=== PATIENT | female | born 1945 ===

== ENCOUNTER 2021-04-06 18:04 | Emergency (ER) | payer MEDICARE, MEDICAID, SELFPAY ==
--- NOTE | ~2021-04-06 | XR_ITS ---
EXAMINATION: XR RIBS, LEFT CLINICAL INFORMATION: Fall. COMPARISON: Most recent chest radiograph dated 10/14/2012. TECHNIQUE: PA view of the chest as well as 3 views of the left ribs. FINDINGS: Lungs are clear. No consolidation, pneumothorax, or pleural effusion. The cardiomediastinal silhouette and pulmonary vasculature are normal. Mildly displaced fractures through the posterolateral aspect of the left 5th, 6th, and 7th ribs. No lytic or blastic osseous lesion. No abnormal soft tissue calcification. XR/XR ribs LT min 3V w CXR1V IMPRESSION: Mildly displaced posterolateral left 5th, 6th, and 7th rib fractures.
[2021-04-06 18:13] VITALS: BP 147/70; BP 180/120; PULSE 80; PULSE 87; RESP 18; TEMP 36.9; O2SAT 96; O2SAT 97; BMI 28.8
--- NOTE | 2021-04-06 18:18 | ED.FALL ---
HPI - Fall General Chief Complaint: Fall Stated Complaint: fall down stairs Time Seen by Provider: 04/06/21 18:18 Source: patient and family Mode of arrival: EMS Limitations: no limitations History of Present Illness HPI Narrative: Patient apparently lost balance had a mechanical fall just prior to arrival while coming downstairs on cement steps fell about 5 steps hit her right side of the head to the wall and hit her left ribs to the ground, was dazed and slightly confused after the injury not on any blood thinner no shortness of breath Related Data Home Medications Medication Instructions Recorded Confirmed amitriptyline 10 mg tablet mg PO 12/13/20 12/13/20 ibuprofen 400 mg tablet mg PO 12/13/20 12/13/20 meclizine 25 mg tablet mg PO 12/13/20 12/13/20 propranolol 60 mg tablet mg PO 12/13/20 12/13/20 sumatriptan succinate 100 mg tablet mg PO 12/13/20 12/13/20 zolpidem 5 mg tablet mg PO 12/13/20 12/13/20 Previous Rx's Medication Instructions Recorded cyclobenzaprine 5 mg tablet 5 mg PO TID PRN #14 tab 04/06/21 tramadol 50 mg tablet 50 mg PO Q6H PRN #20 tab 04/06/21 Allergies Allergy/AdvReac Type Severity Reaction Status Date / Time influenza virus vaccine, Allergy Unknown UNKNOWN Verified 12/13/20 12:29 specific [FLU VACCINE] naproxen [From ANAPROX] Allergy Unknown STOMACH Verified 12/13/20 12:29 UPSET Anaprox Allergy Unknown upset Uncoded 12/13/20 12:29 stomach Review of Systems Review of Systems: Yes all other systems are reviewed and are negative PMF Past Medical History Medical History Post-menopausal Screening for breast cancer Screening for diabetes mellitus Screening for hyperlipidemia Surgical History History of delivery History of colonoscopy Family History Family History Mother No problems noted. Father No problems noted. Social History Social History Housing: House Alcohol intake: never Patient Tobacco Use Status: Former Tobacco user Quit Date: 1997 Advance Directives: No Advance Directives Information Provided: No service: No Current occupational status: disabled Physical Exam Vital Signs: Vital Signs: Last Vital Signs Temp 98.4 F 04/06/21 18:13 Pulse 87 04/06/21 18:13 Resp 18 04/06/21 18:13 BP 147/70 H 04/06/21 18:13 Pulse Ox 97 04/06/21 18:13 Body Mass Index 28.8 Appearance: Alert. Oriented X3. No acute distress. Eyes: PERRLA, HEENT: Pharynx normal. Oral Mucosa moist, atraumatic normocephalic Neck: Normal inspection. Neck supple no midline tenderness CVS: Normal heart rate and rhythm. Pulses normal. Respiratory: No respiratory distress. Equal air entry bilateral, no wheezing/rales/rhonchi tenderness left 6- 7 ribs in mid axillary area no crepitation no bruising Abdomen: Soft and nontender. Bowel sounds are present, no mass palpable, no CVA tenderness Skin: Skin warm and dry. Normal skin color. Normal skin turgor. Extremities: No lower extremity edema. No calf tenderness pelvis stable hips good range of movement nontender Neuro: Oriented X 3. No motor deficit. Procedures FAST Exam FAST Exam 1: Fluid in Morison's pouch: No Fluid in Splenorenal Junction: No Fluid around bladder, Transverse view: No Fluid around bladder, Sagittal view: No Fluid in Pericardial Sac: No Gross Wall Motion Abnormality: No Study normal for this patient: Yes Images saved for further review: No MDM - Fall MDM Narrative Medical decision making narrative: Patient with mild displaced posterolateral left 5 6 7th rib fracture without any lung contusion not on any blood thinner we will discharge patient home on pain medication Imaging Data Chest x-ray: Attestation: I personally reviewed and interpreted this imaging study as follows: Radiologist's impression: XR/XR ribs LT min 3V w CXR1V IMPRESSION: Mildly displaced posterolateral left 5th, 6th, and 7th rib fractures. Discharge Plan Discharge Clinical Impression: Closed rib fracture Qualifiers: Encounter type: initial encounter Rib fracture type: multiple ribs Laterality: left Qualified Code(s): S22.42XA - Multiple fractures of ribs, left side, initial encounter for closed fracture Patient Disposition: Home, Self-Care Instructions: Rib Fracture (ED) Additional Instructions: Rest at home spirometry as advised Pain medication as advised Report to the ER if increased shortness of breath or pain Prescriptions: New tramadol 50 mg tablet 50 mg PO Q6H PRN (Reason: pain) Qty: 20 RF: 0 cyclobenzaprine 5 mg tablet 5 mg PO TID PRN (Reason: muscle spasm) Qty: 14 RF: 0 No Action sumatriptan succinate 100 mg tablet PO RF: 0 zolpidem 5 mg tablet PO RF: 0 ibuprofen 400 mg tablet PO RF: 0 amitriptyline 10 mg tablet PO RF: 0 propranolol 60 mg tablet PO RF: 0 meclizine 25 mg tablet PO RF: 0 Discharge Date/Time: 04/06/21 21:15 Print Language: Bulgarian
[2021-04-06] MEDS: ondansetron HCL 4 MG/2 ML VIAL IVPUSH (20:32)
[2021-04-06] MEDS: Morphine Sulfate 2 MG/ML CARTRIDGE 4 MG IVPUSH (20:33)
== END 2021-04-06 21:15 | disposition home or self-care (01) ==
PROVIDERS: Emergency Provider Internal Medicine
DX: S22.42XA Multiple fractures of ribs, left side, initial encounter for closed fracture (principal); W10.9XXA Fall (on) (from) unspecified stairs and steps, initial encounter; Y93.9 Activity, unspecified; Y92.9 Unspecified place or not applicable; Y99.9 Unspecified external cause status
CPT/HCPCS: 71101; 96374; 96375; 99282; 99284; J2270; J2405

== ENCOUNTER 2021-04-10 01:42 | Emergency (ER) | payer MEDICARE, MEDICAID, SELFPAY ==
--- NOTE | ~2021-04-10 | CT_ITS ---
EXAMINATION: CT abdomen pelvis w con, CT chest w con CLINICAL INFORMATION: Reason for Exam Fall, left sided abd pain, LEFT hip pain with echymosis COMPARISON: Left rib series 04/06/2021. TECHNIQUE: IV contrast-enhanced CT the chest, abdomen pelvis with multiple coronal and sagittal reformatted images Intravenous Contrast: Omnipaque [address] examination was performed using dose optimization techniques as appropriate, variously including the following: *Automated exposure control *Adjustment of mA and/or kV according to patient size (this includes techniques or standardized protocols for targeted exams where dose is matched to indication/reason for exam; i.e. extremities or head) *Use of iterative reconstruction technique DLP: 707 mGy-cm FINDINGS: Lungs and pleura: A small left pleural effusion is noted in association with left base compressive atelectasis. No pneumothoraces are identified. Pleural fluid density measures 0 Hounsfield units. Mediastinum: Scattered aortic calcific atherosclerosis. No abnormal mediastinal fluid collections. Normal heart size. No pericardial thickening or pericardial fluid collections. CHEST WALL: No axillary lymphadenopathy. Left lateral thoracic wall soft tissue inflammatory changes adjacent to multiple left rib fractures described in further detail below. Liver: Normal size, capsular contour. No focal parenchymal lesions. Biliary system: Physiologic distention of the gallbladder. No biliary duct dilatation. Pancreas: Mild diffuse fatty atrophy. Spleen: A laceration of the spleen measuring approximately 3.5 cm in maximum dimension is noted along the superior margin of the spleen and is in a subdural and is associated with a subcapsular hematoma in continuity with less than 50% of the splenic circumference. The subcapsular hematoma measures 1.5 cm in width and extends into the left subphrenic region. No active vascular extravasation is noted in association with these findings. Findings are consistent with a grade 3 splenic injury on the basis of an intraparenchymal laceration measuring greater than 3 cm in length. Adrenal glands: Normal. Kidneys: 6 mm rounded low-density focus within the superior pole the left kidney too small to specifically characterize but likely representing a simple cyst. Urinary bladder: Contracted. Gastrointestinal system: Moderate colonic diverticulosis. No free intraperitoneal fluid or gas collections. No intestinal dilatation or mural thickening. Normal appendix. Abdominal wall: No hernias. Abdominal lymphovascular structures: Moderate diffuse atherosclerosis. Pelvic viscera: Unremarkable. Osseous structures: Soft tissue inflammatory changes and subcutaneous hematomas measuring up to approximately 2 cm in diameter are present adjacent to the lateral aspect of the left hip. Visualized left femur is intact. Multilevel chronic spondylosis of the lumbar spine is noted. Displaced fractures of the left 3-8 lateral rib segments are noted. The sternum is intact. No vertebral body compression deformities are noted. CT/CT abdomen pelvis w con IMPRESSION: -Grade 3 splenic injury characterized by a 3.5 cm laceration and a subcapsular hematoma less than 50% continuity with the spleen. No evidence of associated active vascular extravasation. -Fractures of the lateral segments of the 3-8 ribs. -Small left pleural effusion and atelectasis of the left lower pulmonary lobe. -Soft tissue inflammatory changes adjacent to the lateral aspect of the left hip. No left hip fractures. This critical result was discussed with Janis Malone MD by telephone at 04/10/2021 6:13 AM and it was ascertained that the content and urgency of the report was understood at the time of direct communication.
--- NOTE | 2021-04-10 01:52 | ECG_ITS ---
Test Reason : FALL Blood Pressure : / mmHG Vent. Rate : 073 BPM Atrial Rate : 073 BPM P-R Int : 206 ms QRS Dur : 088 ms QT Int : 414 ms P-R-T Axes : 029 -39 057 degrees QTc Int : 456 ms Normal sinus rhythm Left axis deviation Possible Anterolateral infarct , age undetermined Abnormal ECG When compared with ECG of 14-OCT-2012 15:37, No significant changes seen Referred By: Janis Malone Electronically Signed By:TREASURE VELAZQUEZ
--- NOTE | 2021-04-10 01:52 | ED_ITS ---
HPI - SOB/Dyspnea General Chief Complaint: General Medical Stated Complaint: SOB/low o2 Time Seen by Provider: 04/10/21 01:44 Source: patient, family (Daughter) and certified court interpreter Mode of arrival: EMS History of Present Illness HPI Narrative: This is a 75-year-old female with limited medical history who presents via EMS for increasing wheezing and shortness today during the course the evening and significant history of having fallen down through the stairs on Thursday. As per patient she was going down the stairs, dropped her glasses and reached for them, became unsteady and fell onto her right side without loss of consciousness. Since that time she has had progressively more pain and discomfort. In addition, patient states that she has had left-sided abdominal discomfort as well as left hip pain. Related Data Home Medications Medication Instructions Recorded Confirmed amitriptyline 10 mg tablet mg PO 12/13/20 12/13/20 ibuprofen 400 mg tablet mg PO 12/13/20 12/13/20 meclizine 25 mg tablet mg PO 12/13/20 12/13/20 propranolol 60 mg tablet mg PO 12/13/20 12/13/20 sumatriptan succinate 100 mg tablet mg PO 12/13/20 12/13/20 zolpidem 5 mg tablet mg PO 12/13/20 12/13/20 Previous Rx's Medication Instructions Recorded cyclobenzaprine 5 mg tablet 5 mg PO TID PRN #14 tab 04/06/21 tramadol 50 mg tablet 50 mg PO Q6H PRN #20 tab 04/06/21 Allergies Allergy/AdvReac Type Severity Reaction Status Date / Time influenza virus vaccine, Allergy Unknown UNKNOWN Verified 12/13/20 12:29 specific [FLU VACCINE] naproxen [From ANAPROX] Allergy Unknown STOMACH Verified 12/13/20 12:29 UPSET Anaprox Allergy Unknown upset Uncoded 12/13/20 12:29 stomach Review of Systems Review of Systems: Pertinent positives and negatives as stated in HPI 10 point review of systems is otherwise negative. PMFSH Past Medical History Source: nursing notes reviewed Medical History Post-menopausal Screening for breast cancer Screening for diabetes mellitus Screening for hyperlipidemia Surgical History History of delivery History of colonoscopy Family History Family History Mother No problems noted. Father No problems noted. Social History Social History Housing: House Alcohol intake: never Patient Tobacco Use Status: Former Tobacco user Quit Date: 1997 Use of substances other than those prescribed or required for medical reasons: No Advance Directives: No Advance Directives Information Provided: Yes service: No Current occupational status: disabled Physical Exam Vital Signs: Vital Signs: Last Vital Signs Temp 99.3 F 04/10/21 01:57 Pulse 18 L 04/10/21 06:40 Resp 13 04/10/21 04:37 BP 141/48 H 04/10/21 06:40 Pulse Ox 97 04/10/21 06:40 Oxygen Flow Rate 97 04/10/21 01:57 Body Mass Index 28.3 VITAL SIGNS: Reviewed. GENERAL: Well developed, well nourished, in no acute distress. HEAD: Normocephalic/atraumatic EYES: PERRLA, EOMI OROPHARYNX: no oral lesions noted, posterior pharynx clear NECK: Supple, no adenopathy LUNGS: Decreased breath sounds on the left base, no tachypnea, but shallow respiration noted. SpO2<93> on supplemental oxygen via nasal cannula, there is left-sided chest wall tenderness without crepitus CARDIOVASCULAR: Regular rate and rhythm without noted murmurs, no JVD or lower extremity edema. ABDOMEN: Soft, left-sided tenderness with noted ecchymosis over lower left flank extending over left hip and gluteus, non-distended with bowel sounds. MUSCULOSKELETAL: No tenderness, deformities, or effusions noted on gross inspection. EXTREMITIES: No cyanosis, clubbing or edema. SKIN: Inspection of the skin reveals no rashes NEUROLOGIC: Alert and oriented x 4. Strength and sensation to light touch were grossly intact x 4. Course Course Course Narrative: 75-year-old female with history and clinical presentation consistent with fall and on initial evaluation was noted to have several rib fractures and was discharged home and now returns with hypoxia, suspicious for possible development of pneumonia and given the extensive bruising across the left side will proceed with chest/abdomen/pelvis as well as left hip x-rays as indicated. Otherwise no acute findings on clinical exam. On review of all CT imaging there is a grade 3 splenic laceration with 3.5 cm laceration with subcapsular hematoma but no active extravasation, left ribs 3-8 displaced with associated small left pleural effusion, no hip fracture but a few hematomas. I discussed the case with [facility], who accepts the patient as a trauma consult. The daughter and patient were notified of the results and plan. MDM - SOB/Dyspnea Lab Data Result diagrams: 04/10/21 03:52 04/10/21 03:52 Labs: Lab Results 04/10/21 04/10/21 04/10/21 Range/Units 02:46 03:52 03:52 WBC 20.0 H (4.8-10.8) X10*3/uL RBC 4.53 (4.20-5.50) X10*6/uL Hgb 12.1 (12.0-16.0) g/dl Hct 37.4 (37.0-47.0) % MCV 82.6 (80.0-98.0) fL MCH 26.7 L (27.0-33.0) pg MCHC 32.4 (31.0-35.0) g/dl RDW 14.6 (11.0-16.0) % Plt Count 264 (160-400) X10*3/uL MPV 10.7 (9.4-12.3) fL Immature Gran % (Auto) Cancelled Neut % (Auto) Cancelled Lymph % (Auto) Cancelled [place] % (Auto) Cancelled Eos % (Auto) Cancelled Baso % (Auto) Cancelled Lymph # (Auto) Cancelled [place] # (Auto) Cancelled Eos # (Auto) Cancelled Baso # (Auto) Cancelled Abs Immat Gran (auto) Cancelled Absolute Neuts (auto) Cancelled Absolute Nucleated RBC 0.000 (0.0-0.012) X10*3/uL Nucleated RBC % (auto) 0.0 (0.0-0.2) /100WBC Neutrophils % (Manual) 68 (45-73) % Band Neutrophils % 1 L (3-5) % Lymphocytes % (Manual) 14 L (20-40) % Monocytes % (Manual) 13 H (2-11) % Metamyelocytes % 4 % Abs Neuts (Manual) 13.8 H (2.0-8.3) X10*3/uL Lymphocytes # (Manual) 2.8 (1.2-4.9) X10*3/uL Monocytes # (Manual) 2.6 H (0.1-1.2) X10*3/uL Metamyelocytes # 0.8 X10*3/uL Toxic Vacuolation PRESENT Platelet Estimate NORMAL (NORMAL) Large Platelets PRESENT Plt Morphology Comment NOTED RBC Morphology NORMAL Polychromasia 1+ (0-2) /OIF Don Cells 1+ (0-2) /OIF PT (9.9-13.0) SEC INR (0.9-1.1) Sodium 137 (135-145) mmol/L Potassium 2.9 L (3.3-5.1) mmol/L Chloride 102 (96-108) mmol/L Carbon Dioxide 24 (22-29) mmol/L Anion Gap 14 (12-20) BUN 11 (9-16) mg/dL Creatinine 1.36 (0.5-1.4) mg/dL Estim Creat Clear Calc 25.6 Estimated GFR 38 Random Glucose 199 H (60-115) mg/dL Lactic Acid (0.5-2.0) mmol/L Calcium 8.7 (8.4-10.2) mg/dL Magnesium 2.0 (1.6-2.6) mg/dL Total Bilirubin 0.7 (0.0-1.0) mg/dL AST 17 (5-31) U/L ALT 13 (0-31) U/L Alkaline Phosphatase 94 (39-117) U/L Total Protein 6.6 (6.5-8.0) g/dL Albumin 3.2 L (3.5-5.0) g/dL COVID-19 (MIKE) Negative (Negative) COVID-19 Clin Com See Note 04/10/21 04/10/21 Range/Units 03:52 03:52 WBC (4.8-10.8) X10*3/uL RBC (4.20-5.50) X10*6/uL Hgb (12.0-16.0) g/dl Hct (37.0-47.0) % MCV (80.0-98.0) fL MCH (27.0-33.0) pg MCHC (31.0-35.0) g/dl RDW (11.0-16.0) % Plt Count (160-400) X10*3/uL MPV (9.4-12.3) fL Immature Gran % (Auto) Neut % (Auto) Lymph % (Auto) [place] % (Auto) Eos % (Auto) Baso % (Auto) Lymph # (Auto) [place] # (Auto) Eos # (Auto) Baso # (Auto) Abs Immat Gran (auto) Absolute Neuts (auto) Absolute Nucleated RBC (0.0-0.012) X10*3/uL Nucleated RBC % (auto) (0.0-0.2) /100WBC Neutrophils % (Manual) (45-73) % Band Neutrophils % (3-5) % Lymphocytes % (Manual) (20-40) % Monocytes % (Manual) (2-11) % Metamyelocytes % % Abs Neuts (Manual) (2.0-8.3) X10*3/uL Lymphocytes # (Manual) (1.2-4.9) X10*3/uL Monocytes # (Manual) (0.1-1.2) X10*3/uL Metamyelocytes # X10*3/uL Toxic Vacuolation Platelet Estimate (NORMAL) Large Platelets Plt Morphology Comment RBC Morphology Polychromasia /OIF [place] Cells /OIF PT 13.5 H (9.9-13.0) SEC INR 1.2 H (0.9-1.1) Sodium (135-145) mmol/L Potassium (3.3-5.1) mmol/L Chloride (96-108) mmol/L Carbon Dioxide (22-29) mmol/L Anion Gap (12-20) BUN (9-16) mg/dL Creatinine (0.5-1.4) mg/dL Estim Creat Clear Calc Estimated GFR Random Glucose (60-115) mg/dL Lactic Acid 1.7 (0.5-2.0) mmol/L Calcium (8.4-10.2) mg/dL Magnesium (1.6-2.6) mg/dL Total Bilirubin (0.0-1.0) mg/dL AST (5-31) U/L ALT (0-31) U/L Alkaline Phosphatase (39-117) U/L Total Protein (6.5-8.0) g/dL Albumin (3.5-5.0) g/dL COVID-19 (MIKE) (Negative) COVID-19 Clin Com ECG Data Attestation: I personally reviewed and interpreted this ECG as follows: Prior ECG tracings: available for review (10/14/2012 no acute changes on comparison) Interpretation: Sinus rhythm, HR-73, no STEMI, QTC/QRS are within normal limits. Discharge Plan Discharge Clinical Impression: Trauma, Fall, Spleen laceration, Fracture of ribs, six, closed, Pleural effusion Patient Disposition: [facility] Transfer Details: Trauma Services Prescriptions: No Action tramadol 50 mg tablet 50 mg PO Q6H PRN (Reason: pain) Qty: 20 RF: 0 cyclobenzaprine 5 mg tablet 5 mg PO TID PRN (Reason: muscle spasm) Qty: 14 RF: 0 sumatriptan succinate 100 mg tablet PO RF: 0 zolpidem 5 mg tablet PO RF: 0 ibuprofen 400 mg tablet PO RF: 0 amitriptyline 10 mg tablet PO RF: 0 propranolol 60 mg tablet PO RF: 0 meclizine 25 mg tablet PO RF: 0
[2021-04-10 01:57] VITALS: BP 105/72; PULSE 81; RESP 20; TEMP 37.4; O2SAT 3; BMI 28.3
[2021-04-10 02:01] VITALS: BP 136/68; PULSE 86; O2SAT 96
--- NOTE | 2021-04-10 02:52 | PC.NURSE ---
pt a&o, reports feeling sob, denies chest pain. Ekg completed, labs drawn. pt changed over to hospital attire. pt placed on monitor.
[2021-04-10] MEDS: Ketorolac Tromethamine 15 MG/ML VIAL IVPUSH (03:14)
[2021-04-10 03:15] LABS: COVID-19 Test Negative (Negative)
[2021-04-10 04:07] LABS: Hematocrit 37.4 % (37.0-47.0); Hemoglobin 12.1 g/dl (12.0-16.0); Mean Corpuscular HGB Conc 32.4 g/dl (31.0-35.0); Mean Corpuscular Hemoglobin 26.7 pg (27.0-33.0); Mean Corpuscular Volume 82.6 fL (80.0-98.0); Mean Platelet Volume 10.7 fL (9.4-12.3); Platelet Count 264 X10*3/uL (160-400); Red Blood Count 4.53 X10*6/uL (4.20-5.50); Red Cell Distribution Width 14.6 % (11.0-16.0)
[2021-04-10 04:09] LABS: Lactic Acid 1.7 mmol/L (0.5-2.0)
[2021-04-10 04:19] LABS: INTERNATIONAL NORM RATIO 1.2 (0.9-1.1); Prothrombin Time 13.5 SEC (9.9-13.0)
[2021-04-10 04:20] LABS: Alanine Aminotransferase 13 U/L (0-31); Albumin Level 3.2 g/dL (3.5-5.0); Alkaline Phosphatase 94 U/L (39-117); Anion Gap 14 (12-20); Aspartate Amino Transferase 17 U/L (5-31); Bilirubin Total 0.7 mg/dL (0.0-1.0); Blood Urea Nitrogen 11 mg/dL (9-16); Calcium 8.7 mg/dL (8.4-10.2); Carbon Dioxide 24 mmol/L (22-29); Chloride 102 mmol/L (96-108); Creatinine Clr Calc Pharmacy 25.6; Estimated Glomerular Filt Rate 38; Glucose Random 199 mg/dL (60-115); Potassium 2.9 mmol/L (3.3-5.1); Sodium 137 mmol/L (135-145); Total Protein 6.6 g/dL (6.5-8.0)
--- NOTE | 2021-04-10 04:35 | PC.NURSE ---
pt resting in bed, no sign of respiratory distress, no retractions, pt able to speak in full sentences. family left for the evening. please call Daughter Michelle [phone]
[2021-04-10 04:37] VITALS: BP 111/51; PULSE 64; RESP 13; O2SAT 100
--- NOTE | 2021-04-10 04:43 | PC.NURSE ---
pt is resting at this time with call meraz in place.
[2021-04-10 04:55] LABS: Band Neutrophils Percent 1 % (3-5); Lymphocytes Absolute Manual 2.8 X10*3/uL (1.2-4.9); Lymphocytes Percent Manual 14 % (20-40); Metamyelocytes Absolute 0.8 X10*3/uL; Metamyelocytes Percent 4 %; Monocytes Absolute Manual 2.6 X10*3/uL (0.1-1.2); Monocytes Percent Manual 13 % (2-11); Neutrophils Absolute Manual 13.8 X10*3/uL (2.0-8.3); Neutrophils Percent Manual 68 % (45-73)
[2021-04-10 04:56] LABS: Burr Cells 1+ (0-2) /OIF; Large Platelet PRESENT; Platelet Estimate NORMAL (NORMAL); Platelet Morphology Comment NOTED; Polychromasia 1+ (0-2) /OIF; RBC Morphology NORMAL; Toxic Vacuolation PRESENT
[2021-04-10] MEDS: Potassium Chloride ER 20 MEQ TAB.ER.PRT 40 MEQ PO (05:33)
[2021-04-10] MEDS: Potassium Chloride/H20 10 MEQ/100 ML PIGGYBACK 100 MEQ IV ×2 (05:33→07:10)
--- NOTE | 2021-04-10 06:17 | PC.NURSE ---
NEW LINE REPLACED.Will continue to monitor..
[2021-04-10 06:40] VITALS: BP 141/48; PULSE 18; O2SAT 97
--- NOTE | 2021-04-10 06:40 | PC.NURSE ---
pt reports a decrease of pain, pt sating 97 percent on room. no retraction. pt able to speak in full sentences with no distress. pt does have brusing to left side of her trunk due to post all. Waiting the plan of care. Will continue to monitor. pt on telemonitor.
--- NOTE | 2021-04-10 06:51 | PC.NURSE ---
Called daughter Disha to update her of the plan of being transferred to [facility].
[2021-04-10] MEDS: Diphth,Pertus(ACell),Tet Adult 0.5 ML SYRINGE IM (07:11)
[2021-04-10 07:13] VITALS: BP 100/54; PULSE 67; RESP 15; O2SAT 99
--- NOTE | 2021-04-10 07:29 | PC.NURSE ---
@ 1351 CALL PLACED TO [facility] PT TX LINE TO CONFIRM ACCEPTING DR AND POINT OF ENTRY FOR THIS TRANSFER. WILBERTO ANSWERS, GIVES DR TAYLOR ACCEPTING MD AND THE ER POINT OF ENTRY
--- NOTE | 2021-04-10 07:40 | PC.NURSE ---
@0736 [facility] CALLED FOR TRAUMA TRANSFER WITH IV,CARD MONITOR AND OXYGEN NEEDED DISPATCHER STATES AFTER 8AM DUE TO SHIFT CHANGE, I TOLD HIM I NEEDED TO CHECK WITH THE RN AND WOULD CALL BACK @0738 2ND CALL PLACED TO [facility], LINNEA ANSWERS AND STATES 08:15 WOULD BE THE TX TIME, I TOLD HER THAT THE RN STATES PT IS STABLE @ THIS TIME AND CAN WAIT FOR TRANSFER UNTIL 08:15
--- NOTE | 2021-04-10 07:54 | PC.NURSE ---
@7802 [facility] CALLS TO SAY ALERT WILL BE TAKING THIS CALL
--- NOTE | 2021-04-10 08:07 | PC.NURSE ---
Report given to LARISSA Childers at [facility]. Pt is being t/f for a trauma consult. [facility] is here for transport now. pain being managed with the toradol.
== END 2021-04-10 08:42 | disposition short-term general hospital (02) ==
PROVIDERS: Emergency Provider Student in an Organized Health Care Education/Training Program
DX: S36.039A Unspecified laceration of spleen, initial encounter (principal); S22.43XA Multiple fractures of ribs, bilateral, initial encounter for closed fracture; S70.212A Abrasion, left hip, initial encounter; J90 Pleural effusion, not elsewhere classified; R06.02 Shortness of breath; W10.9XXA Fall (on) (from) unspecified stairs and steps, initial encounter; Y93.9 Activity, unspecified; Y92.9 Unspecified place or not applicable; Y99.9 Unspecified external cause status; Z79.899 Other long term (current) drug therapy; Z87.891 Personal history of nicotine dependence
CPT/HCPCS: 36415; 71260; 74177; 80053; 83605; 83735; 85007; 85025; 85027; 85610; 87040; 87635; 90471; 90715; 93005; 96365; 96366; 96375; 99285; J1885

== ENCOUNTER 2021-04-24 08:58 | Outpatient (REF) | payer MEDICARE, MEDICAID, SELFPAY ==
[2021-04-24 09:33] LABS: Basophils Absolute Auto 0.1 X10*3/uL (0.0-0.2); Eosinophils Absolute Auto 0.3 X10*3/uL (0.0-0.4); Eosinophils Percent Auto 2.3 % (0-4); Hematocrit 36.8 % (37.0-47.0); Hemoglobin 11.8 g/dl (12.0-16.0); Imm Gran Abs Auto 0.33 X10*3/uL (0.00-0.03); Imm Gran Pct Auto 2.9 % (0.0-0.4); Lymphocytes Absolute Auto 1.7 X10*3/uL (1.2-4.9); Lymphocytes Percent Auto 14.6 % (20-40); MANUAL DIFF FLAG SCAN; Mean Corpuscular HGB Conc 32.1 g/dl (31.0-35.0); Mean Corpuscular Hemoglobin 26.3 pg (27.0-33.0); Mean Corpuscular Volume 82.1 fL (80.0-98.0); Mean Platelet Volume 10.1 fL (9.4-12.3); Monocytes Absolute Auto 2.3 X10*3/uL (0.1-1.2); Monocytes Percent Auto 19.6 % (2-11); Neutrophils Absolute Auto 6.9 x10*3/uL (2.0-8.3); Neutrophils Percent Auto 59.6 % (45-73); Platelet Count 352 X10*3/uL (160-400); Red Blood Count 4.48 X10*6/uL (4.20-5.50); SCAN SMEAR FLAG 1; White Blood Count 11.5 X10*3/uL (4.8-10.8)
[2021-04-24 09:51] LABS: Estimated Average Glucose 120 mg/dL; Hemoglobin A1c % 5.8 %
[2021-04-24 09:57] LABS: SLIDE REVIEW VERIFIED
[2021-04-24 10:01] LABS: Alanine Aminotransferase 8 U/L (0-31); Albumin Level 3.1 g/dL (3.5-5.0); Alkaline Phosphatase 134 U/L (39-117); Anion Gap 13 (12-20); Aspartate Amino Transferase 16 U/L (5-31); Bilirubin Total 0.6 mg/dL (0.0-1.0); Blood Urea Nitrogen 10 mg/dL (9-16); Calcium 8.4 mg/dL (8.4-10.2); Carbon Dioxide 25 mmol/L (22-29); Chloride 104 mmol/L (96-108); Cholesterol 119 mg/dL; Estimated Glomerular Filt Rate > 60; Glucose Fasting 128 mg/dL (60-99); HDL Cholesterol 26 mg/dL; Iron 28 mcg/dL (30-160); LDL Cholesterol Calculated 76 mg/dl; Percent Iron Saturation 11 % (15-50); Potassium 3.5 mmol/L (3.3-5.1); Sodium 138 mmol/L (135-145); Total Iron Binding Capacity 260 mcg/dL (228-428); Total Protein 6.6 g/dL (6.5-8.0); Triglycerides 86 mg/dL; Unsaturated Iron Binding 232 ug/dL
[2021-04-24 10:23] LABS: TSH reflex Free T4 4.16 uIU/mL (0.32-4.0)
[2021-04-24 11:16] LABS: Free T4 (Free Thyroxine) 0.95 ng/dL (0.71-1.85)
== END 2021-04-24 08:59 | disposition home or self-care (01) ==
LOC: HO.LAB 08:58
PROVIDERS: PCP Nurse Practitioner Family; Visit Provider Nurse Practitioner Family
DX: Z13.1 Encounter for screening for diabetes mellitus (principal); Z13.220 Encounter for screening for lipoid disorders; E11.9 Type 2 diabetes mellitus without complications; R63.0 Anorexia; I10 Essential (primary) hypertension; G43.909 Migraine, unspecified, not intractable, without status migrainosus
CPT/HCPCS: 36415; 80053; 80061; 83036; 83540; 84439; 84443; 85025

== ENCOUNTER 2021-10-08 10:35 | Outpatient (REF) | payer MEDICARE, MEDICAID, SELFPAY ==
[2021-10-08 11:13] LABS: Basophils Absolute Auto 0.2 X10*3/uL (0.0-0.2); Basophils Percent Auto 1.9 % (0-2); Eosinophils Absolute Auto 0.2 X10*3/uL (0.0-0.4); Eosinophils Percent Auto 2.2 % (0-4); Hematocrit 41.1 % (37.0-47.0); Hemoglobin 13.3 g/dl (12.0-16.0); Imm Gran Abs Auto 0.44 X10*3/uL (0.00-0.03); Imm Gran Pct Auto 4.1 % (0.0-0.4); Lymphocytes Absolute Auto 2.1 X10*3/uL (1.2-4.9); MANUAL DIFF FLAG SCAN; Mean Corpuscular HGB Conc 32.4 g/dl (31.0-35.0); Mean Corpuscular Hemoglobin 26.1 pg (27.0-33.0); Mean Corpuscular Volume 80.7 fL (80.0-98.0); Mean Platelet Volume 10.1 fL (9.4-12.3); Monocytes Percent Auto 18.9 % (2-11); Neutrophils Absolute Auto 5.7 x10*3/uL (2.0-8.3); Neutrophils Percent Auto 52.9 % (45-73); Platelet Count 286 X10*3/uL (160-400); Red Blood Count 5.09 X10*6/uL (4.20-5.50); Red Cell Distribution Width 13.4 % (11.0-16.0); SCAN SMEAR FLAG 1; White Blood Count 10.7 X10*3/uL (4.8-10.8)
[2021-10-08 11:38] LABS: SLIDE REVIEW VERIFIED
[2021-10-08 11:59] LABS: Alanine Aminotransferase 14 U/L (0-31); Albumin Level 3.6 g/dL (3.5-5.0); Alkaline Phosphatase 151 U/L (39-117); Anion Gap 11 (12-20); Aspartate Amino Transferase 21 U/L (5-31); Bilirubin Direct 0.2 mg/dL (0.0-0.5); Bilirubin Total 0.5 mg/dL (0.0-1.0); Blood Urea Nitrogen 9 mg/dL (9-16); Calcium 9.1 mg/dL (8.4-10.2); Carbon Dioxide 28 mmol/L (22-29); Chloride 103 mmol/L (96-108); Estimated Glomerular Filt Rate 53; Glucose Random 140 mg/dL (60-115); Potassium 4.1 mmol/L (3.3-5.1); Sodium 138 mmol/L (135-145); Total Protein 7.6 g/dL (6.5-8.0)
[2021-10-08 12:21] LABS: TSH reflex Free T4 6.82 uIU/mL (0.32-4.0)
[2021-10-08 13:07] LABS: Free T4 (Free Thyroxine) 0.71 ng/dL (0.71-1.85)
== END 2021-10-08 10:36 | disposition home or self-care (01) ==
LOC: HO.LAB 10:35
PROVIDERS: PCP Nurse Practitioner Family; Visit Provider Nurse Practitioner Family
DX: I10 Essential (primary) hypertension (principal); R79.89 Other specified abnormal findings of blood chemistry
CPT/HCPCS: 36415; 80053; 82248; 84439; 84443; 85025

== ENCOUNTER 2021-10-10 13:01 | Outpatient (REF) | payer MEDICARE, MEDICAID, SELFPAY ==
--- NOTE | ~2021-10-10 | CT_ITS ---
EXAMINATION: CT ABDOMEN WITH CONTRAST CLINICAL INFORMATION: Unspecified laceration of spleen. COMPARISON: CT abdomen and pelvis 04/10/2021. TECHNIQUE: Contiguous axial thin section helical images of the abdomen were performed following the administration of oral contrast and 75 mL of Omnipaque 300 intravenous contrast. The data set was reformatted in the coronal and sagittal planes and reviewed on an independent workstation. This CT examination was performed using dose optimization techniques as appropriate, variously including the following: *Automated exposure control. *Adjustment of mA and/or kV according to patient size (this includes techniques or standardized protocols for targeted exams where dose is matched to indication/reason for exam; i.e. extremities or head). *Use of iterative reconstruction technique. DLP: 139 mGy-cm FINDINGS: LUNG BASES: The lung bases are clear. The heart size is normal. LIVER, GALLBLADDER, AND BILIARY TREE: The liver is normal size, homogeneous density and normal contour. No focal lesion or intrahepatic ductal dilatation seen. The gallbladder is nondistended and appears unremarkable. PANCREAS: The pancreas is homogeneous in density with fatty infiltration but otherwise unremarkable. SPLEEN: The spleen is intact but linear hypodensity seen in the area of previous fracture likely a residual change. No acute fracture. Perisplenic fluid collection has completely resolved. ADRENAL GLANDS AND KIDNEYS: Bilateral adrenal glands are symmetrical and normal. Both kidneys are normal size, shape and position. There is a hypodense area in the upper pole posterior cortex left kidney measuring 5 mm, most likely a small cyst. Gas and diverticuli are seen throughout the colon without distention or diverticulitis. The small bowel loops are opacified with oral contrast and appear unremarkable. Appendix appears normal caliber, however, partially visualized. The stomach is nondistended. LYMPH NODES: Normal. VASCULAR: Unremarkable. BONES: No lytic or sclerotic process seen. Mild degenerative disc changes and vacuum disc phenomena is seen at L1-L2, T12-L1, T11-T12, T10-T11 disc levels with mild ventral spondylosis. No lytic or sclerotic process seen. CT/CT abdomen w con IMPRESSION: 1. 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 There is a punctate hypodensity likely some residual effect of scarring. Perisplenic hematoma and fluid collection has resolved. 2. There is a small probable cyst upper pole left kidney. 3. Degenerative disc changes lower dorsal and upper lumbar spine with moderate bridging osteophytes. Fleischner guidelines were followed.
[2021-10-10] MEDS: Barium Sulfate Oral (Vanilla) 450 ML ORAL.SUSP PO (16:36)
== END 2021-10-10 13:02 | disposition home or self-care (01) ==
LOC: HO.CT 13:01
PROVIDERS: PCP Nurse Practitioner Family; Visit Provider Nurse Practitioner Family
DX: S36.039A Unspecified laceration of spleen, initial encounter (principal); R10.9 Unspecified abdominal pain
CPT/HCPCS: 74160; Q9967

== ENCOUNTER 2021-12-27 12:22 | Outpatient (REF) | payer MEDICARE, MEDICAID, SELFPAY ==
--- NOTE | ~2021-12-27 | CT_ITS ---
EXAMINATION: CT HEAD WITHOUT CONTRAST CLINICAL INFORMATION: Head injury COMPARISON: Previous head CT October 2012 TECHNIQUE: Contiguous axial imaging was performed from the skull base to vertex without intravenous administration of contrast. This CT examination was performed using dose optimization techniques as appropriate, variously including the following: *Automated exposure control *Adjustment of mA and/or kV according to patient size (this includes techniques or standardized protocols for targeted exams where dose is matched to indication/reason for exam; i.e. extremities or head) *Use of iterative reconstruction technique DLP: 619 mGy-cm FINDINGS: There is no evidence of an extra-axial collection. There is no evidence of intra-axial or extra-axial hemorrhage. The ventricles and extra-axial CSF spaces are prominent suggestive of generalized atrophy. There is nonspecific periventricular white matter disease. No mass, mass effect or infarct is seen. Review of bone windows is normal. No skull fracture is seen. Visualized paranasal sinuses, mastoid air cells and middle ears are clear. CT/CT head/brain wo con IMPRESSION: No acute findings. Generalized atrophy and nonspecific periventricular white matter disease.
== END 2021-12-27 12:23 | disposition home or self-care (01) ==
LOC: HO.CT 12:22
PROVIDERS: PCP Internal Medicine; Visit Provider Psychiatry & Neurology Neurology
DX: S09.90XD Unspecified injury of head, subsequent encounter (principal)
CPT/HCPCS: 70450

== ENCOUNTER 2022-05-09 08:38 | Outpatient (REF) | payer MEDICARE, MEDICAID, SELFPAY ==
--- NOTE | ~2022-05-09 | US_ITS ---
EXAMINATION: US ABDOMEN COMPLETE CLINICAL INFORMATION: Unspecified abdominal pain. COMPARISON: CT of the abdomen 10/10/2021. Ultrasound of the abdomen 02/09/2007. TECHNIQUE: Real-time imaging of the abdominal viscera. FINDINGS: PANCREAS: Normal. ABDOMINAL AORTA: The proximal, mid, and distal segments are normal in caliber. INFERIOR VENA CAVA: Visualized portions are normal. LIVER: The liver is normal in size. The liver contour is normal. There is diffuse increased liver parenchymal echogenicity, consistent with hepatic steatosis. No focal hepatic lesion. There is no intrahepatic biliary duct dilatation seen. GALLBLADDER: The gallbladder is physiologically distended. Multiple mobile gallstones are present. No evidence of gallbladder wall thickening or pericholecystic fluid. COMMON BILE DUCT: Normal in caliber measuring 0.5 cm in diameter. RIGHT KIDNEY: No hydronephrosis. No renal calculi or focal parenchymal lesions. The kidney measures 10.2 cm in maximum dimension. LEFT KIDNEY: No hydronephrosis. No renal calculi or focal parenchymal lesions. The kidney measures 10.9 cm in maximum dimension. SPLEEN: Normal. The spleen measures 10.3 cm in maximum dimension. FREE FLUID: None. US/US abdomen complete IMPRESSION: 1. Cholelithiasis without evidence of cholecystitis. 2. Hepatic steatosis.
== END 2022-05-09 08:39 | disposition home or self-care (01) ==
LOC: HO.US 08:38
PROVIDERS: Visit Provider Internal Medicine
DX: R10.9 Unspecified abdominal pain (principal)
CPT/HCPCS: 76700

== ENCOUNTER → 2022-06-05 11:20 | Outpatient (BNVA) | payer MEDICARE, MEDICAID, SELFPAY | PROVIDERS: PCP Internal Medicine; Visit Provider Surgery | DX: K80.20 Calculus of gallbladder without cholecystitis without obstruction (principal); K80.50 Calculus of bile duct without cholangitis or cholecystitis without obstruction | CPT/HCPCS: 99202 ==

== ENCOUNTER 2022-12-03 11:44 | Outpatient (REF) | payer MEDICARE, MEDICAID, SELFPAY ==
[2022-12-03 13:22] LABS: Free T4 (Free Thyroxine) 0.68 ng/dL (0.71-1.85); Vitamin D 25-OH Total 12.8 ng/mL (>30)
[2022-12-05 01:52] LABS: Thyroglobulin Antibodies 4 IU/mL (< or = 1); Thyroid Peroxidase Antibodies 5 IU/mL (<9)
== END 2022-12-03 11:45 | disposition home or self-care (01) ==
LOC: HO.LAB 11:44
PROVIDERS: PCP Internal Medicine; Visit Provider Internal Medicine
DX: E55.9 Vitamin D deficiency, unspecified (principal); R94.6 Abnormal results of thyroid function studies
CPT/HCPCS: 36415; 82306; 84439; 84443; 86376; 86800

== ENCOUNTER 2022-12-04 13:16 | Outpatient (AMB) | payer MEDICARE, MEDICAID, SELFPAY ==
--- NOTE | 2022-12-04 13:20 | MHC.PC.OV ---
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 Physicist Required: No Accompanied by: Daughter Allergies influenza virus vaccine, specific [FLU VACCINE] Allergy (Unknown, Verified 12/04/22 13:25) UNKNOWN naproxen [From ANAPROX] Allergy (Unknown, Verified 12/04/22 13:25) STOMACH UPSET Anaprox Allergy (Unknown, Uncoded 07/30/22 13:12) upset stomach Medication List - Last Reconciled 12/04/22 by Vanessa Ken MD amitriptyline 10 mg PO DAILY ibuprofen 400 mg PO DAILY levothyroxine 25 mcg PO DAILY 90 days meclizine 25 mg PO DAILY propranolol 60 mg PO DAILY sumatriptan succinate 100 mg PO DAILY zolpidem 5 mg PO BEDTIME Tobacco use date assessed: 07/30/22 Fall risk assessment: No Falls in past year Last assessed Fall Risk: 12/04/22 Dental Screening Dental Screen Date: 12/04/22 Did you have a dental visit in the last 12 months?: No Did you have a dental problem in the last 6 months where you did not have access to dental care?: No Was dental information given to patient?: Patient declined HPI HPI Comments History of Present Illness Details This is a 77-year-old female with mild major depression, hypothyroidism, vertigo and low vitamin-D that comes today for follow-up on recent labs. Depression stable with amitriptyline. TSH still elevated and I will start her on levothyroxine 25 mcg. Still has vertigo when looking up right and will be referred to vestibular therapy. Vitamin-D is low and will be supplemented. No chest pain or shortness of breath. Accompanied by daughter. [facility] Medical History (Updated 12/04/22 @ 13:48 by Vanessa Ken MD) Post-menopausal Screening for breast cancer Screening for diabetes mellitus Screening for hyperlipidemia Surgical History History of delivery History of colonoscopy Family History Mother No problems noted. Father Prostate CA Sister Colon cancer Family/Other Colon cancer Social History Housing: House Alcohol intake: never Patient Tobacco Use Status: Former Tobacco user Quit Date: 1997 e-Cigarette/Vaping Use: Never Used Second Hand Smoke Exposure: No service: No Current occupational status: disabled Cognitive needs: No Hearing needs: No Vision needs: Yes (glasses) Questionnaire Thrive Questionnaire Date Thrive assessed: 07/30/22 CADE-7 AMB Questionnaire CADE-7 Date CADE - 7 assessed: 07/30/22 Source: Developed by Drs. Shashi Alcantara, Ana Lilia Morgan, Mendez Hernandez and colleagues, with an educational linda from [email or web address]. Review of Systems Const All systems reviewed & are unremarkable except as noted in HPI and below Eyes Reports no additional complaints, Denies change in vision and Denies other visual disturbances ENT Reports dizziness Card Denies chest pain at rest, Denies chest pain with activity, Denies edema, Denies irregular heart rhythm, Denies claudication, Denies dyspnea, Denies dyspnea on exertion, Denies orthopnea, Denies paroxysmal nocturnal dyspnea and Denies slow heart rate Resp Denies cough, Denies dyspnea and Denies dyspnea on exertion GI Denies abdominal pain, Denies change in bowel habits, Denies excessive flatus, Denies nausea and Denies vomiting Denies urinary incontinence, Denies urinary hesitancy and Denies urinary urgency Musc Denies abnormal gait, Denies atrophy, Denies deformity and Denies limited range of motion Skin/Breast Denies bleeding lesions, Denies changing lesions and Denies rash Neuro Denies abnormal gait, Reports dizziness and Denies lack of coordination Physical exam (Primary Care) Vital Signs: Last Vital Signs BP 132/70 12/04/22 13:21 BMI result Body Mass Index 26.2 Tobacco/Smoking Status: Tobacco use Status Tobacco use date assessed 07/30/22 12/04/22 13:27 Patient Tobacco Use Status Former Tobacco user 12/04/22 13:27 e-Cigarette/Vaping Use Never Used 12/04/22 13:27 Thrive Assessment: Date of Thrive Assessment Date Thrive assessed 07/30/22 12/04/22 13:27 Eyes General: appearance normal, both eyes and all related structures Eyelids: Yes eyelids normal Conjunctivae: conjunctivae normal Neck Neck: Yes normal visual inspection and Yes supple Resp Effort & Inspection: normal respiratory effort Auscultation: clear to auscultation bilaterally Cardio Jugular venous distension: no JVD Rate: regular rate Rhythm: regular rhythm Heart sounds: S1 normal heart sound present and S2 normal heart sound present Extrem General: Yes full ROM Assessment and Plan Assessment & Plan (1) Mild major depression: Code(s): F32.0 - Major depressive disorder, single episode, mild Plan: Continue amitriptyline (2) Hypothyroidism: Code(s): E03.9 - Hypothyroidism, unspecified Plan: Start levothyroxine. Repeat TSH in 6 weeks. (3) BPPV (benign paroxysmal positional vertigo): Code(s): H81.10 - Benign paroxysmal vertigo, unspecified ear Plan: Continue meclizine as needed. Start vestibular therapy. (4) Hypovitaminosis D: Code(s): E55.9 - Vitamin D deficiency, unspecified Plan: Start vitamin-D supplement Orders: Orders Thyroid Stimulating Hormone 6 Weeks E03.9 - Hypothyroidism, unspecified PT Evaluation and Treatment Today H81.10 - Benign paroxysmal vertigo, unspecified ear Medications: New cholecalciferol (vitamin D3) 50 mcg PO DAILY 90 days 90 caps 1RF Coding Level of Care Code Est Pt Level 4 (90617) Diagnoses Mild major depression F32.0 Hypothyroidism E03.9 BPPV (benign paroxysmal positional vertigo) H81.10 Hypovitaminosis D E55.9 Time Spent (min) 20
[2022-12-04 13:21] VITALS: BP 132/70; BMI 26.2
== END 2022-12-04 13:48 | disposition home or self-care (01) ==
PROVIDERS: Visit Provider Internal Medicine
DX: F32.0 Major depressive disorder, single episode, mild (principal); E03.9 Hypothyroidism, unspecified; H81.10 Benign paroxysmal vertigo, unspecified ear; E55.9 Vitamin D deficiency, unspecified
CPT/HCPCS: 99214

== ENCOUNTER 2023-04-15 14:03 | Outpatient (AMB) | payer MEDICARE, MEDICAID, SELFPAY ==
[2023-04-15 14:09] VITALS: BP 126/62; BMI 25.5
--- NOTE | 2023-04-15 14:09 | MHC.PC.OV ---
Vital Signs 04/15/23 14:09 Height 4 ft 9 in Weight 118 lb BMI 25.5 BP 126/62 Blood Pressure Location Lt brachial Position Sitting Intake Visit Reasons: pe Intake Note: Patient here for a physical exam Director Dermatology Required: No Accompanied by: Self / Same As Patient Allergies influenza virus vaccine, specific [FLU VACCINE] Allergy (Unknown, Verified 04/15/23 14:17) UNKNOWN naproxen [From ANAPROX] Allergy (Unknown, Verified 04/15/23 14:17) STOMACH UPSET Anaprox Allergy (Unknown, Uncoded 04/15/23 14:17) upset stomach Medication List - Last Reconciled 04/15/23 by Vanessa Ken MD amitriptyline 10 mg PO DAILY cholecalciferol (vitamin D3) 50 mcg PO DAILY 90 days ibuprofen 400 mg PO DAILY levothyroxine 25 mcg PO DAILY 90 days meclizine 25 mg PO DAILY propranolol 60 mg PO DAILY sumatriptan succinate 100 mg PO DAILY zolpidem 5 mg PO BEDTIME Tobacco use date assessed: 07/30/22 Fall risk assessment: No Falls in past year Last assessed Fall Risk: 04/15/23 Dental Screening Dental Screen Date: 04/15/23 Did you have a dental visit in the last 12 months?: No Did you have a dental problem in the last 6 months where you did not have access to dental care?: No Was dental information given to patient?: Patient has dentist HPI HPI Comments History of Present Illness Details This is a 77-year-old female with mild major depression that comes for her physical exam. No need for mammogram, Pap smear or colonoscopy due to age, no chest pain or shortness of breath. Depression stable with amitriptyline. [facility] Medical History (Updated 04/15/23 @ 14:48 by Vanessa Ken MD) Post-menopausal Surgical History History of colonoscopy History of delivery Family History (Updated 04/15/23 @ 14:23 by Vanessa Ken MD) Mother Colon cancer Father Prostate CA Sister Colon cancer Family/Other Colon cancer Brother Esophageal cancer Social History Housing: House Alcohol intake: never Patient Tobacco Use Status: Former Tobacco user Quit Date: 1997 e-Cigarette/Vaping Use: Never Used Second Hand Smoke Exposure: No service: No Current occupational status: disabled Cognitive needs: No Hearing needs: No Vision needs: Yes (glasses) Questionnaire Thrive Questionnaire Date Thrive assessed: 07/30/22 CADE-7 AMB Questionnaire CADE-7 Date CADE - 7 assessed: 07/30/22 Source: Developed by Drs. Shashi Alcantara, Ana Lilia Morgan, Mendez Hernandez and colleagues, with an educational linda from [employer]. Review of Systems Const All systems reviewed & are unremarkable except as noted in HPI and below Eyes Reports no additional complaints, Denies change in vision and Denies other visual disturbances Card Denies chest pain at rest, Denies chest pain with activity, Denies edema, Denies irregular heart rhythm, Denies claudication, Denies dyspnea, Denies dyspnea on exertion, Denies orthopnea, Denies paroxysmal nocturnal dyspnea and Denies slow heart rate Resp Denies cough, Denies dyspnea and Denies dyspnea on exertion GI Denies abdominal pain, Denies change in bowel habits, Denies excessive flatus, Denies nausea and Denies vomiting Denies urinary incontinence, Denies urinary hesitancy and Denies urinary urgency Musc Denies abnormal gait, Denies atrophy, Denies deformity and Denies limited range of motion Skin/Breast Denies bleeding lesions, Denies changing lesions and Denies rash Neuro Denies abnormal gait and Denies lack of coordination Physical exam (Primary Care) Vital Signs: Last Vital Signs BP 126/62 04/15/23 14:09 BMI result Body Mass Index 25.5 Tobacco/Smoking Status: Tobacco use Status Tobacco use date assessed 07/30/22 04/15/23 14:12 Patient Tobacco Use Status Former Tobacco user 04/15/23 14:12 e-Cigarette/Vaping Use Never Used 04/15/23 14:12 Thrive Assessment: Date of Thrive Assessment Date Thrive assessed 07/30/22 04/15/23 14:12 Const Orientation/consciousness: patient oriented x3 HENMT Head: Yes normal to inspection, Yes normocephalic and Yes atraumatic Ears: external ears normal Eyes General: appearance normal, both eyes and all related structures Eyelids: Yes eyelids normal Conjunctivae: conjunctivae normal Neck Neck: Yes normal visual inspection and Yes supple Resp Effort & Inspection: normal respiratory effort Auscultation: clear to auscultation bilaterally Cardio Jugular venous distension: no JVD Rate: regular rate Rhythm: regular rhythm Heart sounds: S1 normal heart sound present and S2 normal heart sound present GI Inspection: Yes normal to inspection Palpation (GI): Soft to palpation and nontender Auscultation: normal bowel sounds Skin General skin exam: no rashes or lesions noted Neuro General: patient oriented x3 and no focal motor deficits Extrem General: Yes full ROM Psych Appearance: grossly normal Office Procedures Flu Questionnaire Does the patient have a severe egg allergy?: No Has the patient ever had any past reaction to a flu shot?: Yes Results AMB Hemoglobin A1c AMB Hemoglobin A1c 6.2 % Last Edit by MIKEL Cardenas on 04/15/23 14:17 Immunizations flu vacc [id number] 6mos up(PF) 60 mcg(15 mcgx4)/0.5 mL IM syringe Performing Provider: Vanessa Ken MD [facility] Documented (not given) by: MIKEL Cardenas on 04/15/23 14:13 Reason Not Given: Allergic to Vaccine Ingredient Results Reviewed Results Reviewed: Laboratory Last Values Hgb A1c (Clinic) 6.2 % (4.0-6.0) H 04/15/23 14:12 Assessment and Plan Assessment & Plan (1) Physical exam: Code(s): Z00.00 - Encounter for general adult medical examination without abnormal findings Plan: Repeat in a year. (2) Mild major depression: Code(s): F32.0 - Major depressive disorder, single episode, mild Plan: Continue amitriptyline. Orders: Orders AMB Hemoglobin A1c Today Z13.1 - Encounter for screening for diabetes mellitus Lipid Panel Today E78.5 - Hyperlipidemia, unspecified Comprehensive [place]. Panel Fast Today H81.10 - Benign paroxysmal vertigo, unspecified ear Influenza [id number] Immunization Today Z23 - Encounter for immunization Thyroid Stimulating Hormone Today E03.9 - Hypothyroidism, unspecified Vitamin D 25-OH Total Today E55.9 - Vitamin D deficiency, unspecified Referrals Ophthalmology Referral H53.8 - Other visual disturbances Coding Level of Care Code Est Pt Prev Care >65y(66463) Diagnoses Physical exam Z00.00 Mild major depression F32.0 Time Spent (min) 31
== END 2023-04-15 14:29 | disposition home or self-care (01) ==
PROVIDERS: PCP Internal Medicine; Visit Provider Internal Medicine
DX: Z00.00 Encounter for general adult medical examination without abnormal findings (principal); F32.0 Major depressive disorder, single episode, mild; Z13.1 Encounter for screening for diabetes mellitus
CPT/HCPCS: 83036; 99397

== ENCOUNTER 2023-09-22 13:19 | Outpatient (AMB) | payer MEDICARE, MEDICAID, SELFPAY ==
--- NOTE | 2023-09-22 13:24 | MHC.PC.OV ---
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: No Accompanied by: Self / Same As Patient Allergies influenza virus vaccine, specific [FLU VACCINE] Allergy (Unknown, Verified 09/22/23 13:38) UNKNOWN naproxen [From ANAPROX] Allergy (Unknown, Verified 09/22/23 13:38) STOMACH UPSET Anaprox Allergy (Unknown, Uncoded 09/22/23 13:38) upset stomach Medication List - Last Reconciled 09/22/23 by Vanessa Ken MD amitriptyline 10 mg PO DAILY cholecalciferol (vitamin D3) 50 mcg PO DAILY 90 days ibuprofen 400 mg PO DAILY levothyroxine 25 mcg PO DAILY 90 days meclizine 25 mg PO DAILY propranolol 60 mg PO DAILY sumatriptan succinate 100 mg PO DAILY zolpidem 5 mg PO BEDTIME Tobacco use date assessed: 09/22/23 Fall risk assessment: No Falls in past year Last assessed Fall Risk: 09/22/23 Dental Screening Dental Screen Date: 09/22/23 Did you have a dental visit in the last 12 months?: No Did you have a dental problem in the last 6 months where you did not have access to dental care?: No Was dental information given to patient?: Patient has dentist HPI HPI Comments History of Present Illness Details This is an 78-year-old female with hypothyroidism, migraines, mild major depression and low vitamin-D that comes today for follow-up on her conditions. TSH will be repeated today because the last TSH was elevated. Migraines stable with propranolol. Depression well controlled with amitriptyline at bedtime. On vitamin-D supplements for low vitamin-D. Denies any chest pain or shortness of breath. [facility] Medical History (Updated 09/22/23 @ 14:37 by Vanessa Ken MD) Post-menopausal Surgical History History of colonoscopy History of delivery Family History Mother Colon cancer Father Prostate CA Sister Colon cancer Family/Other Colon cancer Brother Esophageal cancer Social History Housing: House Alcohol intake: never Patient Tobacco Use Status: Former Tobacco user Quit Date: 1997 e-Cigarette/Vaping Use: Never Used Second Hand Smoke Exposure: No service: No Current occupational status: disabled Cognitive needs: No Hearing needs: No Vision needs: Yes (glasses) Questionnaire PHQ-9 Over the last 2 weeks, how often have you been bothered by any of the following problems? 1. Little interest or pleasure in doing things: not at all 2. Feeling down, depressed, or hopeless: several days 3. Trouble falling or staying asleep, or sleeping too much: not at all 4. Feeling tired or having little energy: several days 5. Poor appetite or overeating: not at all 6. Feeling bad about yourself - or that you are a failure or have let yourself or your family down: not at all 7. Trouble concentrating on things, such as reading the newspaper or watching television: not at all 8. Moving or speaking so slowly that other people could have noticed. Or the opposite - being so fidgety or restless that you have been moving around a lot more than usual: not at all 9. Thoughts that you would be better off or of hurting yourself in some way: not at all Total score: 2 Depression Screening Interpretation: Negative Depression Screening Done: Yes [id number] - PHQ-9 Billing: Yes Source: Developed by Drs. Shashi Alcantara, Ana Lilia Morgan, Mendez Hernandez and colleagues, with an educational linda from [employer]. Thrive Questionnaire Date Thrive assessed: 09/22/23 I am a: Patient What is your living situation today?: I have a steady place to live Within the past 12 months, did the food you bought not last and you didn't have the money to get more?: Never true Within the past 12 months, did you worry whether your food would run out before you got money to buy more?: Never true Do you have trouble paying for medicines?: No Do you have trouble getting transportation to medical appointments?: No Do you have trouble paying your heating and electricity bill?: No Do you have trouble taking care of your child, family member or friend?: No Do you have trouble with day-to-day activities such as bathing, preparing meals, shopping, managing finances, etc.?: No Are you currently unemployed and looking for a job?: No Are you interested in more education?: No Please select the resources that you would like help with: None Currently or been in a relationship where the following occur: no concerns reported THRIVE Score: 0 AUDIT C Alcohol Use Questionnaire (AUDIT-C) 1. How often do you have a drink containing alcohol?: Never Total Score: 0 Score Reviewed/Action Taken: No CADE-7 AMB Questionnaire CADE-7 Date CADE - 7 assessed: 09/22/23 Feeling nervous, anxious, or on edge: 0 = Not at all Not being able to stop or control worryin = Not at all Worrying too much about different things: 1 = Several days Trouble relaxin = Not at all Being so restless that it is hard to sit still: 0 = Not at all Becoming easily annoyed or irritable: 1 = Several days Feeling afraid as if something awful might happen: 1 = Several days Total CADE-7 score (0-4 normal; 5-9 mild; 10-14 moderate; 15-21 severe): 3 Source: Developed by Drs. Shashi Alcantara, Ana Lilia Morgan, Mendez Hernandez and colleagues, with an educational linda from [employer]. Review of Systems Const All systems reviewed & are unremarkable except as noted in HPI and below Eyes Reports no additional complaints, Denies change in vision and Denies other visual disturbances Card Denies chest pain at rest, Denies chest pain with activity, Denies edema, Denies irregular heart rhythm, Denies claudication, Denies dyspnea, Denies dyspnea on exertion, Denies orthopnea, Denies paroxysmal nocturnal dyspnea and Denies slow heart rate Resp Denies cough, Denies dyspnea and Denies dyspnea on exertion GI Denies abdominal pain, Reports hematochezia, Denies change in bowel habits, Denies excessive flatus, Denies nausea and Denies vomiting Denies urinary incontinence, Denies urinary hesitancy and Denies urinary urgency Physical exam (Primary Care) Vital Signs: Last Vital Signs BP 124/62 09/22/23 13:25 BMI result Body Mass Index 25.1 Tobacco/Smoking Status: Tobacco use Status Tobacco use date assessed 09/22/23 09/22/23 13:31 Patient Tobacco Use Status Former Tobacco user 09/22/23 13:31 e-Cigarette/Vaping Use Never Used 09/22/23 13:31 PHQ-9: PHQ-9 Score PHQ-9: Total score 2 09/22/23 13:39 Depression Screening Interpretation: Negative Thrive Assessment: Date of Thrive Assessment Date Thrive assessed 09/22/23 09/22/23 13:31 Currently or been in a relationship where the following occur: no concerns reported Resp Effort & Inspection: normal respiratory effort Auscultation: clear to auscultation bilaterally Cardio Jugular venous distension: no JVD Rate: regular rate Rhythm: regular rhythm Heart sounds: S1 normal heart sound present and S2 normal heart sound present Extrem General: Yes full ROM Assessment and Plan Assessment & Plan (1) Mild major depression: Code(s): F32.0 - Major depressive disorder, single episode, mild Plan: Continue amitriptyline. (2) Migraine: Code(s): G43.909 - Migraine, unspecified, not intractable, without status migrainosus Qualifiers: Migraine type: unspecified Status migrainosus presence: without status migrainosus Intractability: not intractable Qualified Code(s): G43.909 - Migraine, unspecified, not intractable, without status migrainosus Plan: Continue propranolol. Use Triptan as needed. (3) Hypothyroidism: Code(s): E03.9 - Hypothyroidism, unspecified Qualifiers: Hypothyroidism type: acquired Qualified Code(s): E03.9 - Hypothyroidism, unspecified Plan: Continue levothyroxine. Repeat TSH today. (4) Hypovitaminosis D: Code(s): E55.9 - Vitamin D deficiency, unspecified Plan: Continue vitamin-D supplements. Orders: Orders Thyroid Stimulating Hormone Today E03.9 - Hypothyroidism, unspecified Vitamin D 25-OH Total Today E55.9 - Vitamin D deficiency, unspecified Referrals Gastroenterology Referral K92.1 - Melena Medications: New propylene glycol (PF) 0.6% (Systane Complete PF) 1 drp ophthalmic (eye) .every 6 hours PRN 30 ea 2RF dry eyes 30 days Coding Level of Care Code Est Pt Level 4 (43510) Diagnoses Mild major depression F32.0 Migraine without status migrainosus, not intractable, unspecified migraine type G43.909 Migraine type: unspecified Status migrainosus presence: without status migrainosus Intractability: not intractable Acquired hypothyroidism E03.9 Hypothyroidism type: acquired Hypovitaminosis D E55.9 Time Spent (min) 20
[2023-09-22 13:25] VITALS: BP 124/62; BMI 25.1
== END 2023-09-22 13:58 | disposition home or self-care (01) ==
PROVIDERS: PCP Internal Medicine; Visit Provider Internal Medicine
DX: F32.0 Major depressive disorder, single episode, mild (principal); G43.909 Migraine, unspecified, not intractable, without status migrainosus; E03.9 Hypothyroidism, unspecified; E55.9 Vitamin D deficiency, unspecified
CPT/HCPCS: 99214

== ENCOUNTER 2024-02-17 13:26 | Outpatient (AMB) | payer MEDICARE, MEDICAID, SELFPAY ==
[2024-02-17 13:27] VITALS: BP 120/62; BMI 26.0
--- NOTE | 2024-02-17 13:27 | MHC.PC.OV ---
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 Accompanied by: Self / Same As Patient Allergies influenza virus vaccine, specific [FLU VACCINE] Allergy (Unknown, Verified 02/17/24 13:38) UNKNOWN naproxen [From ANAPROX] Allergy (Unknown, Verified 02/17/24 13:38) STOMACH UPSET Anaprox Allergy (Unknown, Uncoded 02/17/24 13:38) upset stomach Medication List - Last Reconciled 02/17/24 by Vanessa Ken MD amitriptyline 10 mg PO DAILY cholecalciferol (vitamin D3) 50 mcg PO DAILY 90 days ibuprofen 400 mg PO DAILY levothyroxine 25 mcg PO DAILY 90 days meclizine 25 mg PO DAILY propranolol 60 mg PO BID propylene glycol (PF) 0.6% (Systane Complete PF) 1 drp ophthalmic (eye) .every 6 hours PRN 30 days sumatriptan succinate 100 mg PO DAILY zolpidem 5 mg PO BEDTIME Tobacco use date assessed: 09/22/23 Fall risk assessment: No Falls in past year Last assessed Fall Risk: 02/17/24 Dental Screening Dental Screen Date: 09/22/23 HPI HPI Comments History of Present Illness Details This is an 78-year-old female with mild major depression, hypothyroidism, insomnia, migraines and low vitamin-D that comes today for follow-up on her conditions. Depression stable with amitriptyline. TSH and vitamin-D levels will be ordered. Compliant with medications. On zolpidem for her insomnia. Migraines are stable with Triptan as needed and use propranolol for migraine prophylaxis. Complains of some hair loss. [facility] Medical History Post-menopausal Adult general medical exam Diabetes mellitus screening Loss of appetite Encounter to establish care History of recent fall Splenic laceration Rib fractures Elevated LFTs Left sided abdominal pain Biliary colic URI (upper respiratory infection) Physical exam Surgical History History of colonoscopy History of delivery Family History Mother Colon cancer Father Prostate CA Sister Colon cancer Family/Other Colon cancer Brother Esophageal cancer Social History Housing: House Alcohol intake: never Patient Tobacco Use Status: Former Tobacco user e-Cigarette/Vaping Use: Never Used Second Hand Smoke Exposure: No service: No Current occupational status: disabled Cognitive needs: No Hearing needs: No Vision needs: Yes (glasses) Questionnaire Thrive Questionnaire Date Thrive assessed: 09/22/23 Are you currently unemployed and looking for a job?: I choose not to answer this question CADE-7 AMB Questionnaire CADE-7 Date CADE - 7 assessed: 09/22/23 Source: Developed by Drs. Shashi Alcantara, Ana Lilia Morgan, Mendez Hernandez and colleagues, with an educational linda from [employer]. Review of Systems Const All systems reviewed & are unremarkable except as noted in HPI and below Card Denies chest pain at rest, Denies chest pain with activity, Denies edema, Denies irregular heart rhythm, Denies claudication, Denies dyspnea, Denies dyspnea on exertion, Denies orthopnea, Denies paroxysmal nocturnal dyspnea and Denies slow heart rate Resp Denies cough, Denies dyspnea and Denies dyspnea on exertion GI Denies abdominal pain, Denies change in bowel habits, Denies excessive flatus, Denies nausea and Denies vomiting Physical exam (Primary Care) Vital Signs: Last Vital Signs BP 120/62 02/17/24 13:27 BMI result Body Mass Index 26.0 Tobacco/Smoking Status: Tobacco use Status Tobacco use date assessed 09/22/23 02/17/24 13:31 Patient Tobacco Use Status Former Tobacco user 02/17/24 13:31 e-Cigarette/Vaping Use Never Used 02/17/24 13:31 Thrive Assessment: Date of Thrive Assessment Date Thrive assessed 09/22/23 02/17/24 13:31 Resp Effort & Inspection: normal respiratory effort Auscultation: clear to auscultation bilaterally Cardio Jugular venous distension: no JVD Rate: regular rate Rhythm: regular rhythm Heart sounds: S1 normal heart sound present and S2 normal heart sound present Extrem General: Yes full ROM Office Procedures Flu Questionnaire Does the patient have a severe egg allergy?: No Has the patient ever had any past reaction to a flu shot?: Yes Immunizations Fluarix Triv [id number] (PF) 45 mcg (15 mcg x 3)/0.5 mL IM syringe Performing Provider: Vanessa Ken MD [place] [place] [facility] Documented (not given) by: MIKEL Cardenas on 02/17/24 13:32 Reason Not Given: Adverse Reaction- Previous Coding Level of Care Code Est Pt Level 4 (06652) Complex EM visit Add On G2211 Diagnoses Mild major depression F32.0 Acquired hypothyroidism E03.9 Hypothyroidism type: acquired Insomnia G47.00 Migraine without status migrainosus, not intractable, unspecified migraine type G43.909 Migraine type: unspecified Status migrainosus presence: without status migrainosus Intractability: not intractable Hypovitaminosis D E55.9 Time Spent (min) 23 Assessment & Plan Assessment & Plan (1) Mild major depression: Code(s): F32.0 - Major depressive disorder, single episode, mild Category: Medical Plan: Continue amitriptyline. (2) Hypothyroidism: Code(s): E03.9 - Hypothyroidism, unspecified Category: Medical Qualifiers: Hypothyroidism type: acquired Qualified Code(s): E03.9 - Hypothyroidism, unspecified Plan: Continue levothyroxine. Monitor TSH. (3) Insomnia: Code(s): G47.00 - Insomnia, unspecified Category: Medical Plan: Continue zolpidem. (4) Migraine: Code(s): G43.909 - Migraine, unspecified, not intractable, without status migrainosus Category: Medical Qualifiers: Migraine type: unspecified Status migrainosus presence: without status migrainosus Intractability: not intractable Qualified Code(s): G43.909 - Migraine, unspecified, not intractable, without status migrainosus Plan: Continue propranolol for migraine prophylaxis. Continue Triptan as needed. (5) Hypovitaminosis D: Code(s): E55.9 - Vitamin D deficiency, unspecified Category: Medical Plan: Continue vitamin-D supplements. Orders: Orders Influenza [id number] Immunization Today Z23 - Encounter for immunization Thyroid Stimulating Hormone Today E03.9 - Hypothyroidism, unspecified Vitamin D 25-OH Total Today E55.9 - Vitamin D deficiency, unspecified
== END 2024-02-17 13:49 | disposition home or self-care (01) ==
PROVIDERS: PCP Internal Medicine; Visit Provider Internal Medicine
DX: F32.0 Major depressive disorder, single episode, mild (principal); E03.9 Hypothyroidism, unspecified; G47.00 Insomnia, unspecified; G43.909 Migraine, unspecified, not intractable, without status migrainosus; E55.9 Vitamin D deficiency, unspecified; Z23 Encounter for immunization

== ENCOUNTER 2024-02-17 13:26 | Outpatient (REF) | payer MEDICARE, MEDICAID, SELFPAY ==
[2024-02-17 15:50] LABS: Alanine Aminotransferase 16 U/L (0-31); Albumin Level 3.7 g/dL (3.5-5.0); Alkaline Phosphatase 130 U/L (39-117); Anion Gap 11 (12-20); Aspartate Amino Transferase 24 U/L (5-31); Bilirubin Total 0.5 mg/dL (0.0-1.0); Blood Urea Nitrogen 12 mg/dL (9-16); Calcium 9.5 mg/dL (8.4-10.2); Carbon Dioxide 25 mmol/L (22-29); Chloride 106 mmol/L (96-108); Cholesterol 147 mg/dL (<200); Estimated Glomerular Filt Rate > 60; Glucose Fasting 97 mg/dL (60-99); HDL Cholesterol 40 mg/dL (>40); LDL Cholesterol Calculated 92 mg/dL (<100); Potassium 4.7 mmol/L (3.3-5.1); Sodium 137 mmol/L (135-145); Total Protein 8.3 g/dL (6.5-8.0); Triglycerides 77 mg/dL (<150)
[2024-02-17 15:57] LABS: Thyroid Stimulating Hormone 2.81 uIU/mL (0.32-4.0)
== END 2024-02-17 13:27 | disposition home or self-care (01) ==
LOC: HO.LAB 13:26
PROVIDERS: PCP Internal Medicine; Visit Provider Internal Medicine
DX: E03.9 Hypothyroidism, unspecified (principal); F32.0 Major depressive disorder, single episode, mild; G43.909 Migraine, unspecified, not intractable, without status migrainosus; G47.00 Insomnia, unspecified; E55.9 Vitamin D deficiency, unspecified; E78.5 Hyperlipidemia, unspecified; Z79.899 Other long term (current) drug therapy
CPT/HCPCS: 36415; 80053; 80061; 82306; 84443; 90471; 99212

== ENCOUNTER 2024-08-17 13:42 | Outpatient (AMB) | payer MEDICARE, MEDICAID, SELFPAY ==
[2024-08-17 13:47] VITALS: BP 118/60; PULSE 60; TEMP 36.2; O2SAT 97; BMI 26.3
--- NOTE | 2024-08-17 13:47 | MHC.PC.OV ---
Vital Signs 08/17/24 13:47 Height 4 ft 9 in Blood Pressure Location Lt brachial Position Sitting Pulse Source Pulse Oximeter Temp Source Temporal Artery Scan Oxygen Delivery Method Room Air Intake Visit Reasons: Annual Exam Allergies influenza virus vaccine, specific [FLU VACCINE] Allergy (Unknown, Verified 02/17/24 13:38) UNKNOWN naproxen [From ANAPROX] Allergy (Unknown, Verified 02/17/24 13:38) STOMACH UPSET Anaprox Allergy (Unknown, Uncoded 02/17/24 13:38) upset stomach Tobacco use date assessed: 09/22/23 Dental Screening Dental Screen Date: 09/22/23 [facility] Medical History Post-menopausal Adult general medical exam Diabetes mellitus screening Loss of appetite Encounter to establish care History of recent fall Splenic laceration Rib fractures Elevated LFTs Left sided abdominal pain Biliary colic URI (upper respiratory infection) Physical exam Surgical History History of colonoscopy History of delivery Family History Mother Colon cancer Father Prostate CA Sister Colon cancer Family/Other Colon cancer Brother Esophageal cancer Social History Housing: House Alcohol intake: never Patient Tobacco Use Status: Former Tobacco user e-Cigarette/Vaping Use: Never Used Second Hand Smoke Exposure: No service: No Current occupational status: disabled Cognitive needs: No Hearing needs: No Vision needs: Yes (glasses) Questionnaire Thrive Questionnaire Date Thrive assessed: 09/22/23 CADE-7 AMB Questionnaire CADE-7 Date CADE - 7 assessed: 09/22/23 Source: Developed by Drs. Shashi Alcantara, Ana Lilia Morgan, Mendez Hernandez and colleagues, with an educational linda from [employer] Physical exam (Primary Care) Tobacco/Smoking Status: Tobacco use Status Tobacco use date assessed 09/22/23 02/17/24 13:31 Patient Tobacco Use Status Former Tobacco user 02/17/24 13:31 e-Cigarette/Vaping Use Never Used 02/17/24 13:31 Thrive Assessment: Date of Thrive Assessment Date Thrive assessed 09/22/23 02/17/24 13:31 Coding
--- NOTE | 2024-08-17 13:52 | A.OFFVIS_ITS ---
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 Accompanied by: Self / Same As Patient Allergies influenza virus vaccine, specific [FLU VACCINE] Allergy (Unknown, Verified 08/17/24 14:19) UNKNOWN naproxen [From ANAPROX] Allergy (Unknown, Verified 08/17/24 14:19) STOMACH UPSET Anaprox Allergy (Unknown, Uncoded 08/17/24 14:19) upset stomach Medication List - Last Reconciled 08/17/24 by Vanessa Ken MD amitriptyline 10 mg PO DAILY cholecalciferol (vitamin D3) 50 mcg PO DAILY 90 days ibuprofen 400 mg PO DAILY levothyroxine 25 mcg PO DAILY 90 days meclizine 25 mg PO DAILY propranolol 60 mg PO BID propylene glycol (PF) 0.6% (Systane Complete PF) 1 drp ophthalmic (eye) .every 6 hours PRN 30 days sumatriptan succinate 100 mg PO DAILY zolpidem 5 mg PO BEDTIME HPI HPI Comments History of Present Illness Details The patient is an 78-year-old female presenting for her annual wellness examination and pneumonia vaccination. She has not previously received the pneumococcal vaccine post-63 years of age. Her medical history indicates migraines managed successfully with sumatriptan and insomnia treated with zolpidem. She has controlled hypertension and is taking levothyroxine 25 mcg for hypothyroidism. The patient?s allergies include the flu vaccine and naproxen. Current medications include low-dose amitriptyline and meclizine. Recent thyroid tests w ere within normal limits. Her family history reveals colon cancer on the maternal side and prostate cancer on the paternal side. A previous section was noted, and her colon cancer screening was last conducted before age 73, given no current gastrointestinal complaints. - Pneumonia vaccination planned today - Discussion on the importance of regula r wellness visits - Thyroid function tests were normal in February - Recommending bone density test due to timing lapse [facility] Medical History (Updated 08/17/24 @ 17:06 by Vanessa Ken MD) Post-menopausal Adult general medical exam Diabetes mellitus screening Loss of appetite Encounter to establish care History of recent fall Splenic laceration Rib fractures Elevated LFTs Left sided abdominal pain Biliary colic URI (upper respiratory infection) Physical exam Surgical History History of colonoscopy History of delivery Family History Mother Colon cancer Father Prostate CA Sister Colon cancer Family/Other Colon cancer Brother Esophageal cancer Social History Housing: House Alcohol intake: never Patient Tobacco Use Status: Former Tobacco user e-Cigarette/Vaping Use: Never Used Second Hand Smoke Exposure: No service: No Current occupational status: disabled Cognitive needs: No Hearing needs: No Vision needs: Yes (glasses) Questionnaire Medicare Wellness Checkup What is your age?: 80 or older What gender do you identify with?: female During the past 4 weeks, how much have you been bothered by emotional problems such as feeling anxious, depressed, irritable, sad or downhearted, and blue?: moderately During the past 4 weeks, has your physical & emotional health limited your social activities with family, friends, neighbors, or groups?: not at all During the past 4 weeks, how much bodily pain have you generally had?: mild pain During the past 4 weeks, was someone available to help you if you needed & wanted help?: yes, some During the past 4 weeks, what was the hardest physical activity you could do for at least 2 minutes?: moderate Can you get to places out of walking distance without help? (For eg., can you travel alone on buses, taxis or drive your car?): Yes Can you go shopping for groceries or clothes without someone's help?: No Can you prepare your own meals?: Yes Can you do your housework without help?: No Because of any health problems, do you need the help of another person with your personal care needs such as eating, bathing, dressing or getting around the house?: No Can you handle your own money without help?: Yes During the past 4 weeks, how would you rate your health in general?: fair During the past 4 weeks how have things been going for you?: good & bad parts about equal Are you having difficulties driving your car?: no Do you always fasten your seat belt when you are in a car?: yes, usually During past 4 weeks, have you been bothered by the following: never: Sexual problems?, Teeth or denture problems? and Problems using the telephone?, seldom: Falling or dizzy when standing up and sometimes: Trouble eating well? and Tiredness or fatigue? Have you fallen 2 or more times in the past year?: Yes Are you afraid of falling?: Yes Are you a smoker?: no During the past 4 weeks, how many drinks of wine, beer, or other alcoholic beverages did you have?: no alcohol at all Do you exercise for about 20 minutes 3 or more times a week?: yes, most of the time Have you been given information to help with the following?: yes: Hazards in your house that might hurt you? and yes: Keeping track of your medications? How often do you have trouble taking medicines the way you have been told to take them?: I do not have to take medicine How confident are you that you can control & manage most of your health problems?: very confident What is your race?: or origin or descent Mini Mental State Exam (MMSE) Orientation What is the (year) (season) (date) (day) (month)?: year, season, date, day and month Where are we (state) (county) (town or city) (hospital) (floor)?: state, county, town or city, hospital/clinic and floor Registration Name of 3 unrelated objects clearly and slowly, then ask patient to repeat all 3 of them. (1st repeat determines score. Make sure they can repeat all three): object 1, object 2 and object 3 Attention & Calculation (CHOOSE ONE) Spell WORLD backwards (DLROW): 5 letters Recall Ask patient to repeat the 3 items from question #3.: object 1, object 2 and object 3 Language Show patient a wristwatch & ask what it is. Repeat for pencil.: watch and pencil Ask the patient to repeat the phrase 'No ifs, ands, or buts' after you.: correct Ask the patient to 'take a piece of paper with their right hand' 'fold paper in half' 'place paper on floor': take paper in right hand, fold paper in half and place paper on floor Print the sentence 'CLOSE YOUR EYES' on a piece. If patient actually closes eyes then score.: followed written direction Give patient a blank piece of paper & ask to write a sentence. Score if it contains a noun & verb.: sentence contains subject and verb Score Score: 29 Activity of Daily Living Bathing - sponge bath, tub bath or shower: receives no assistance (gets in/out by self, if usual bathing means Dressing - getting clothes from closets & drawers, including inner/outer garments & fasteners.: gets clothes & gets completely dressed without help Toileting - going to the 'toilet room' for urine/bowel elimination & cleaning self/arranging clothes: goes to toilet room, cleans self, arranges clothes without help Transfer: moves in & out of bed and chair without help (may use support object) Continence: controls urination/bowel movements completely by self Feeding: feeds self without help Total Score: 0 Information obtained from: patient Using telephone: independent Traveling: needs assistance Shopping: needs assistance Preparing meals: independent Housework: independent Taking medicine: independent Managing money: independent PHQ-9 Over the last 2 weeks, how often have you been bothered by any of the following problems? 1. Little interest or pleasure in doing things: not at all 2. Feeling down, depressed, or hopeless: not at all 3. Trouble falling or staying asleep, or sleeping too much: not at all 4. Feeling tired or having little energy: not at all 5. Poor appetite or overeating: not at all 6. Feeling bad about yourself - or that you are a failure or have let yourself or your family down: not at all 7. Trouble concentrating on things, such as reading the newspaper or watching television: not at all 8. Moving or speaking so slowly that other people could have noticed. Or the opposite - being so fidgety or restless that you have been moving around a lot more than usual: not at all 9. Thoughts that you would be better off or of hurting yourself in some way: not at all Total score: 0 Depression Screening Interpretation: Negative Depression Screening Done: Yes [id number] - PHQ-9 Billing: Yes Source: Developed by Drs. Shashi Alcantara, Ana Lilia Morgan, Mendez Hernandez and colleagues, with an educational linda from [employer]. Review of Systems Const All systems reviewed & are unremarkable except as noted in HPI and below Card Denies chest pain at rest, Denies chest pain with activity, Denies edema, Denies irregular heart rhythm, Denies claudication, Denies dyspnea, Denies dyspnea on exertion, Denies orthopnea, Denies paroxysmal nocturnal dyspnea and Denies slow heart rate Resp Denies cough, Denies dyspnea and Denies dyspnea on exertion GI Denies abdominal pain, Denies change in bowel habits, Denies excessive flatus, Denies nausea and Denies vomiting Neuro Denies confusion Psych Denies confusion Physical Exam Vital Signs: Last Vital Signs Temp 97.1 F 08/17/24 13:47 Pulse 60 08/17/24 13:47 BP 118/60 08/17/24 13:47 Pulse Ox 97 08/17/24 13:47 Oxygen Delivery Method Room Air 08/17/24 13:47 BMI result Body Mass Index 26.3 Const General: No confusion Orientation/consciousness: patient oriented x3 and No confusion Resp Effort & Inspection: normal respiratory effort Auscultation: clear to auscultation bilaterally Cardio Jugular venous distension: no JVD Rate: regular rate Rhythm: regular rhythm Heart sounds: S1 normal heart sound present and S2 normal heart sound present Neuro General: patient oriented x3, no focal motor deficits and No confusion Romberg Test: Negative Extrem General: Yes full ROM Psych Appearance: grossly normal Immunizations pneumoc 20-elena conj-dip cr(PF) 0.5 mL IM syringe Performing Provider: Vanessa Ken MD [place] [facility] [place] [facility] Administered by: Donna Bess CMA on 08/17/24 14:41 Dose Route Admin Location Dispensed Lot Number Expiration Date 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 Managing migraines with sumatriptan and insomnia with zolpidem has been successful, so no changes are needed. Levothyroxine will continue as recent tests confirmed normal thyroid function. I have emphasized a bone density scan and reviewed family cancer history, noting the importance of regular screenings when appropriate. Her occasional use of a walking aid was addressed with the provision of necessary support. Patient was informed and verbally consented to the use of an ambient scribe for clinic note documentation during this visit. I discussed the importance of receiving the pneumonia vaccine due to her age and the lack of prior administration after 65. We reviewed her medication regimen for migraines, insomnia, and thyroid management, confirming no changes are needed given effective current therapies. I highlighted the importance of a bone density scan. I also reinforced the significance of maintaining annual wellness visits to keep her health optimally monitored. Understanding her family's cancer history, I confirmed no immediate need for further screening but advised vigilance in monitoring potential symptoms. Orders: Orders XR DEXA axial skeleton Today Z78.0 - Asymptomatic menopausal state Lipid Panel 5 Months E78.5 - Hyperlipidemia, unspecified Thyroid Stimulating Hormone 5 Months E03.9 - Hypothyroidism, unspecified Vitamin D 25-OH Total 5 Months E55.9 - Vitamin D deficiency, unspecified Comprehensive [place]. Panel Fast 5 Months H81.10 - Benign paroxysmal vertigo, unspecified ear Pneumococcal 20 Immunization Today Z23 - Encounter for immunization Patient Instructions: - Receive pneumonia vaccine as discussed - Continue current medication regimen for migraines, insomnia, and thyroid - Schedule and complete a bone density test - Attend future wellness visits - Contact the office for any worsening of symptoms or new health concerns Quality Reporting (2019) Depression/Bipolar (159/160/161/177) PHQ-9: Total score: 0 Coding Level of Care Code Medicare First (G0438) Diagnoses Encounter for Medicare annual wellness exam Z00.00 Mild major depression F32.0 CPT Codes Advance Care Planning - Advance Care Planning discussion: On file, no changes ([id number]) Advance Care Planning - Time spent: 1-15 minutes, on File ([id number]) Additional Codes PHQ-9 - 48995 - PHQ-9 Billing: Yes ([id number]) Time Spent (min) 36 Advance Care Planning Advance Care Planning discussion: On file, no changes Date of discussion: 08/17/24 Who was present: patient, daughter and me Forms completed: Health Care Proxy Time spent: 1-15 minutes, on File Actual minutes spent: 4
== END 2024-08-17 14:43 | disposition home or self-care (01) ==
PROVIDERS: PCP Internal Medicine; Visit Provider Internal Medicine
DX: Z00.00 Encounter for general adult medical examination without abnormal findings (principal); F32.0 Major depressive disorder, single episode, mild; Z23 Encounter for immunization

== ENCOUNTER → 2024-08-17 13:42 | Outpatient (BNVA) | payer MEDICARE, MEDICAID, SELFPAY | PROVIDERS: PCP Internal Medicine; Visit Provider Internal Medicine | DX: Z00.00 Encounter for general adult medical examination without abnormal findings (principal); F32.0 Major depressive disorder, single episode, mild; E78.5 Hyperlipidemia, unspecified; E03.9 Hypothyroidism, unspecified; H81.10 Benign paroxysmal vertigo, unspecified ear; Z23 Encounter for immunization; Z78.0 Asymptomatic menopausal state | CPT/HCPCS: 90471; 90677; 96127 ==

== ENCOUNTER 2024-09-21 10:22 | Outpatient (REF) | payer MEDICARE, MEDICAID, SELFPAY ==
--- NOTE | ~2024-09-21 | MM_ITS ---
EXAMINATION: DXA BONE DENSITY AXIAL HISTORY: Z78.0 - Asymptomatic menopausal state TECHNIQUE: [employer] Dual energy absorptiometry (DEXA) of the lumbar spine, total left hip, and femoral neck was performed. COMPARISON: Comparison is made with the prior examination dated 06/16/2013. FINDINGS: The bone mineral density of the lumbar spine is 1.171 with a T-score of -0.1, and a Z-score of 2.2. This is indicative of normal bone mineral density. This represents a BMD change of 7.0% compared to the prior exam. This is statistically significant. The bone mineral density of the left total hip is 0.829 with a T-score of -1.4, and a Z-score of 0.9. This is indicative of osteopenia. This represents a BMD change of -5.7% compared to the prior exam. This is statistically significant. The bone mineral density of the left femoral neck is 0.762 with a T-score of -2.0, and a Z-score of 0.5. This is indicative of osteopenia. This represents a BMD change of -7.4% compared to the prior exam. FRACTURE RISK: The FRAX index suggests a ten year probability of major osteoporotic fracture of 14.2%, and of hip fracture 3.8%. MM/XR DEXA axial skeleton IMPRESSION: Based on bone mineral density, and according to World Health Organization (WHO) criteria, the diagnosis is consistent with osteopenia. All bone density values are in grams per centimeter squared (g/cm2). Statistically, 68% of repeat scans fall within 1 SD (+/- 0.010 g/cm2 for AP spine L1-L4) and 1 SD (+/- 0.012 g/cm2 for femur total) FRAX is a trademark of the [employer], a World Health Organization (WHO) Collaborating Center. Electronically signed by: Shashi Villagomez MD 09/21/2024 11:51 AM EDT
== END 2024-09-21 10:23 | disposition home or self-care (01) ==
LOC: HO.MAMMO 10:22
PROVIDERS: PCP Internal Medicine; Visit Provider Internal Medicine
DX: Z13.820 Encounter for screening for osteoporosis (principal); Z78.0 Asymptomatic menopausal state
CPT/HCPCS: 77080

== ENCOUNTER → 2024-09-21 10:30 | Outpatient (BNV) | payer MEDICARE, MEDICAID, SELFPAY | PROVIDERS: PCP Internal Medicine; Visit Provider Radiology Diagnostic Radiology | DX: E28.39 Other primary ovarian failure (principal) | CPT/HCPCS: 77080 ==

== ENCOUNTER 2025-01-17 10:48 | Outpatient (AMB) | payer MEDICARE, MEDICAID, SELFPAY ==
--- NOTE | 2025-01-17 10:51 | A.OFFPC_ITS ---
Vital Signs 01/17/25 10:53 Height 4 ft 9 in Weight 123 lb 4 oz BMI 26.7 BP 120/68 Blood Pressure Location Lt brachial Position Sitting Pulse 61 Pulse Source Pulse Oximeter Temp 97.1 F Temp Source Temporal Artery Scan Pulse Oximetry (%) 98 Oxygen Delivery Method Room Air Intake Visit Reasons: thyroid Intake Note: Patient is here to follow up on Thyroid. 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: No Medical Transcriber: Present Accompanied by: Daughter Allergies influenza virus vaccine, specific (FLU VACCINE) Allergy (Unknown, Verified 01/17/25 11:17) UNKNOWN naproxen (From ANAPROX) Allergy (Unknown, Verified 01/17/25 11:17) STOMACH UPSET Anaprox Allergy (Unknown, Uncoded 01/17/25 11:17) upset stomach Medication List - Last Reconciled 01/17/25 by Vanessa Ken MD amitriptyline 10 mg PO DAILY calcium carbonate (Calcium 600) 600 mg PO BID 90 days cholecalciferol (vitamin D3) 50 mcg PO DAILY 90 days ibuprofen 400 mg PO TID PRN 30 days levothyroxine 25 mcg PO DAILY 90 days meclizine 25 mg PO DAILY propranolol 60 mg orally 1/2 tab in the morning and 1 tab at bedtime; 30 days propylene glycol (PF) 0.6% (Systane Complete PF) 1 drp ophthalmic (eye) .every 6 hours PRN 30 days sumatriptan succinate 100 mg PO DAILY zolpidem 5 mg PO BEDTIME Tobacco use date assessed: 01/17/25 Fall risk assessment: No Falls in past year Last assessed Fall Risk: 01/17/25 Dental Screening Dental Screen Date: 01/17/25 Did you have a dental visit in the last 12 months?: No Did you have a dental problem in the last 6 months where you did not have access to dental care?: No Was dental information given to patient?: No HPI HPI Comments History of Present Illness0 Details The patient is an 79-year-old female presenting with depression, hypothyroidism, osteopenia, migraine, insomnia, and anxiety. The patient has a history of depression, currently assessed with a PHQ-9 score of 7, indicating mild depression. She is not currently under psychiatric care. The patient has been diagnosed with hypothyroidism and is on levothyroxine 25 mcg. There is a need to check thyroid function as it has not been assessed recently. Osteopenia is managed with calcium and vitamin D supplementation. The patient experiences migraines and uses sumatriptan as needed for management. Insomnia is managed with zolpidem for sleep. The patient reports anxiety, which may be contributing to her insomnia. [facility] Medical History (Updated 01/17/25 @ 12:03 by Vanessa Ken MD) Post-menopausal Adult general medical exam Loss of appetite Encounter to establish care History of recent fall Splenic laceration Rib fractures Elevated LFTs Left sided abdominal pain Biliary colic URI (upper respiratory infection) Physical exam Surgical History History of colonoscopy History of delivery Family History Mother Colon cancer Father Prostate CA Sister Colon cancer Family/Other Colon cancer Brother Esophageal cancer Social History Housing: House Alcohol intake: never Patient Tobacco Use Status: Former Tobacco user e-Cigarette/Vaping Use: Never Used Second Hand Smoke Exposure: Yes service: No Current occupational status: disabled Cognitive needs: No Hearing needs: No Vision needs: Yes (glasses) Questionnaire PHQ-9 Over the last 2 weeks, how often have you been bothered by any of the following problems? 1. Little interest or pleasure in doing things: nearly every day 2. Feeling down, depressed, or hopeless: not at all 3. Trouble falling or staying asleep, or sleeping too much: several days 4. Feeling tired or having little energy: several days 5. Poor appetite or overeating: more than half the days 6. Feeling bad about yourself - or that you are a failure or have let yourself or your family down: not at all 7. Trouble concentrating on things, such as reading the newspaper or watching television: not at all 8. Moving or speaking so slowly that other people could have noticed. Or the o pposite - being so fidgety or restless that you have been moving around a lot more than usual: not at all 9. Thoughts that you would be better off or of hurting yourself in some way: not at all Total score: 7 Depression Screening Interpretation: Positive Depression Screening Follow-up: Existing condition, In treatment and Follow-up Visit Requested Depression Screening Done: Yes 55939 - PHQ-9 Billing: Yes Source: Developed by Drs. Shashi Alcantara, Ana Lilia Morgan, Mendez Hernandez and colleagues, with an educational linda from [facility]. Thrive Questionnaire Date Thrive assessed: 01/17/25 I am a: Patient What is your living situation today?: I have a steady place to live Within the past 12 months, did the food you bought not last and you didn't have the money to get more?: I choose not to answer this question Within the past 12 months, did you worry whether your food would run out before you got money to buy more?: Never true Do you have trouble paying for medicines?: I choose not to answer this question Do you have trouble getting transportation to medical appointments?: No Do you have trouble paying your heating and electricity bill?: I choose not to answer this question Do you have trouble taking care of your child, family member or friend?: I choose not to answer this question Do you have trouble with day-to-day activities such as bathing, preparing meals, shopping, managing finances, etc.?: No Are you currently unemployed and looking for a job?: No Are you interested in more education?: No Please select the resources that you would like help with: Utilities Currently or been in a relationship where the following occur: I choose not to answer THRIVE Score: 0 AUDIT C Alcohol Use Questionnaire (AUDIT-C) 1. How often do you have a drink containing alcohol?: Never Total Score: 0 Score Reviewed/Action Taken: No CADE-7 AMB Questionnaire CADE-7 Date CADE - 7 assessed: 01/17/25 Feeling nervous, anxious, or on edge: 1 = Several days Not being able to stop or control worryin = Several days Worrying too much about different things: 1 = Several days Trouble relaxin = Several days Being so restless that it is hard to sit still: 0 = Not at all Becoming easily annoyed or irritable: 0 = Not at all Feeling afraid as if something awful might happen: 1 = Several days Total CADE-7 score (0-4 normal; 5-9 mild; 10-14 moderate; 15-21 severe): 5 Source: Developed by Drs. Shashi Alcantara, Ana Lilia Morgan, Mendez Hernandez and colleagues, with an educational linda from [facility]. CADE-7 Assessment Billing CADE-7 Assessment Tool: CADE-7 Assessment 14852 Review of Systems Const All systems reviewed & are unremarkable except as noted in HPI and below Card Denies chest pain at rest, Denies chest pain with activity, Denies edema, Denies irregular heart rhythm, Denies claudication, Denies dyspnea, Denies dyspnea on exertion, Denies orthopnea, Denies paroxysmal nocturnal dyspnea and Denies slow heart rate Resp Denies cough, Denies dyspnea and Denies dyspnea on exertion GI Denies abdominal pain, Denies change in bowel habits, Denies excessive flatus, Denies nausea and Denies vomiting Neuro Denies lack of coordination Physical exam (Primary Care) Vital Signs: Last Vital Signs Temp 97.1 F 01/17/25 10:53 Pulse 61 01/17/25 10:53 BP 120/68 01/17/25 10:53 Pulse Ox 98 01/17/25 10:53 Oxygen Delivery Method Room Air 01/17/25 10:53 BMI result Body Mass Index 26.7 Tobacco/Smoking Status: Tobacco use Status Tobacco use date assessed 01/17/25 01/17/25 10:59 Patient Tobacco Use Status Former Tobacco user 01/17/25 10:59 e-Cigarette/Vaping Use Never Used 01/17/25 10:59 PHQ-9: PHQ-9 Score PHQ-9: Total score 7 01/17/25 10:59 Depression Screening Interpretation: Positive Depression Screening Follow-up: Existing condition, In treatment and Follow-up Visit Requested Thrive Assessment: Date of Thrive Assessment Date Thrive assessed 01/17/25 01/17/25 10:59 Currently or been in a relationship where the following occur: I choose not to answer Resp Effort & Inspection: normal respiratory effort Auscultation: clear to auscultation bilaterally Cardio Jugular venous distension: no JVD Rate: regular rate Rhythm: regular rhythm Heart sounds: S1 normal heart sound present and S2 normal heart sound present Extrem General: Yes full ROM Coding Level of Care Code Est Pt Level 4 (48662) Complex EM visit Add On G2211 Diagnoses Mild major depression F32.0 Acquired hypothyroidism E03.9 Hypothyroidism type: acquired Osteopenia M85.80 GERD (gastroesophageal reflux disease) K21.9 Additional Codes PHQ-9 - 71118 - PHQ-9 Billing: Yes ([id number]) CADE-7 Assessment Billing - CADE-7 Assessment Tool: CADE-7 Assessment [id number] ([id number]) Time Spent (min) 22 Assessment & Plan Assessment & Plan (1) Mild major depression: Code(s): F32.0 - Major depressive disorder, single episode, mild Category: Medical (2) Hypothyroidism: Code(s): E03.9 - Hypothyroidism, unspecified Category: Medical Qualifiers: Hypothyroidism type: acquired Qualified Code(s): E03.9 - Hypothyroidism, unspecified (3) Osteopenia: Code(s): M85.80 - Other specified disorders of bone density and structure, unspecified site Category: Medical (4) GERD (gastroesophageal reflux disease): Code(s): K21.9 - Gastro-esophageal reflux disease without esophagitis Category: Medical Plan Plan Patient was informed and verbally consented to the use of an ambient scribe for clinic note documentation during this visit. 1. Major depressive disorder, recurrent, mild F33.0 HCC 59 The patient has mild depression with a PHQ-9 score of 7. Amitriptyline is prescribed to help with depression, sleep, and headaches. 2. Hypothyroidism, unspecified E03.9 The patient is on levothyroxine 25 mcg for hypothyroidism. Thyroid function anurag ts are recommended as they have not been performed recently. 3. Other specified disorders of bone density and structure, unspecified site M85.80 Osteopenia is managed with calcium and vitamin D supplementation. 4. Migraine, unspecified, not intractable, without status migrainosus G43.909 The patient uses sumatriptan as needed for migraine management. 5. Insomnia, unspecified G47.00 Zolpidem is prescribed for insomnia management. Medications: Changed From amitriptyline 10 mg PO DAILY To amitriptyline 10 mg PO DAILY 90 tabs 1RF 90 days
[2025-01-17 10:53] VITALS: BP 120/68; PULSE 61; TEMP 36.2; O2SAT 98; BMI 26.7
== END 2025-01-17 11:30 | disposition home or self-care (01) ==
LOC: HO.HMCH 10:49
PROVIDERS: PCP Internal Medicine; Visit Provider Internal Medicine
DX: F32.0 Major depressive disorder, single episode, mild (principal); E03.9 Hypothyroidism, unspecified; M85.80 Other specified disorders of bone density and structure, unspecified site; K21.9 Gastro-esophageal reflux disease without esophagitis

== ENCOUNTER → 2025-01-17 10:48 | Outpatient (BNVA) | payer MEDICARE, MEDICAID, SELFPAY | PROVIDERS: PCP Internal Medicine; Visit Provider Internal Medicine | DX: K21.9 Gastro-esophageal reflux disease without esophagitis (principal); E03.9 Hypothyroidism, unspecified; M85.80 Other specified disorders of bone density and structure, unspecified site; G43.909 Migraine, unspecified, not intractable, without status migrainosus; G47.00 Insomnia, unspecified; F41.9 Anxiety disorder, unspecified; F32.0 Major depressive disorder, single episode, mild | CPT/HCPCS: 96127; 99212 ==

== ENCOUNTER 2025-01-25 12:06 | Outpatient (AMB) | payer MEDICARE, MEDICAID, SELFPAY ==
--- NOTE | 2025-01-25 12:09 | A.OFFVIS_ITS ---
Vital Signs 01/25/25 12:09 Height 4 ft 9 in Intake Visit Reasons: 6 month Faculty Neuropsychologist Required: Yes Faculty Neuropsychologist Services: Faculty Neuropsychologist Offered & Declined (daughter to translate) Accompanied by: Daughter Allergies influenza virus vaccine, specific (FLU VACCINE) Allergy (Unknown, Verified 01/25/25 12:15) UNKNOWN naproxen (From ANAPROX) Allergy (Unknown, Verified 01/25/25 12:15) STOMACH UPSET Anaprox Allergy (Unknown, Uncoded 01/25/25 12:15) upset stomach Medication List - Last Reconciled 01/25/25 by Cheyanne Darnell CNP amitriptyline 10 mg PO DAILY 90 days calcium carbonate (Calcium 600) 600 mg PO BID 90 days cholecalciferol (vitamin D3) 50 mcg PO DAILY 90 days ibuprofen 400 mg PO TID PRN 30 days levothyroxine 25 mcg PO DAILY 90 days meclizine 25 mg PO TID PRN propranolol 1 tab at bedtime; propylene glycol (PF) 0.6% (Systane Complete PF) 1 drp ophthalmic (eye) .every 6 hours PRN 30 days zolpidem 5 mg PO BEDTIME HPI Comments Details: Headaches were about the same. She had 2 bad migraines this past week with photophobia, sonophobia, nausea, and vomiting. Sumatriptan as needed helped and she needed refill. May have been triggered by stress. She was under some stress. She was not taking morning dose of propranolol as it made her too tired. Sleep was up and down, waking during the night and has trouble falling back to sleep. Dizziness was okay, uses meclizine as needed. Headaches about 2-3x/wk relieved in about 60 minutes after taking pills. Dizziness on looking up has resolved. Uses 1/4 Sumatriptan. Had some pain to top of neck and shoulders. Was having some numbness in both hands for few months, worse at night. Occasionally the right hand hurts and the fingers go numb. Nerve conduction studies showed a mild carpal tunnel syndrome on the right. It has gotten slightly worse compared to the left. BP under control.? She has a history of depression and migraine headaches without aura.. Her migraines respond well to sumatriptan. Her depression has been stable. She has previously had a KEI which was normal. Can't sleep without Zolpidem 5mg. No more dizzy spells. [facility] Medical History (Updated 01/25/25 @ 12:12 by Cheyanne Darnell CNP) Post-menopausal Adult general medical exam Loss of appetite Encounter to establish care History of recent fall Splenic laceration Rib fractures Elevated LFTs Left sided abdominal pain Biliary colic URI (upper respiratory infection) Physical exam Surgical History History of colonoscopy History of delivery Family History Mother Colon cancer Father Prostate CA Sister Colon cancer Family/Other Colon cancer Brother Esophageal cancer Social History Housing: House Alcohol intake: never Patient Tobacco Use Status: Former Tobacco user e-Cigarette/Vaping Use: Never Used Second Hand Smoke Exposure: Yes service: No Current occupational status: disabled Cognitive needs: No Hearing needs: No Vision needs: Yes (glasses) Review of Systems Const Denies chills, Denies daytime sleepiness, Denies difficulty sleeping, Denies fatigue, Denies fever(s), Denies frequent falls, Reports headache(s), Denies increased appetite, Denies poor appetite, Denies snoring, Denies weakness, Denies weight gain and Denies weight loss Eyes Denies loss of vision ENT Denies vertigo, Denies dizziness, Reports headache(s) and Denies neck pain Card Denies chest pain at rest, Denies chest pain with activity, Denies syncope, Denies leg edema, Denies palpitations, Denies dyspnea and Denies dyspnea on exertion Resp Denies cough, Denies dyspnea, Denies dyspnea on exertion and Denies snoring GI Denies abdominal pain, Denies constipation, Denies heartburn, Denies diarrhea and Denies nausea Denies urinary frequency, Denies urinary incontinence and Denies urinary urgency Musc Denies abnormal gait, Denies back pain, Denies myalgias, Denies arthralgias, Denies neck pain, Denies numbness and Denies tingling Neuro Denies abnormal gait, Denies vertigo, Denies dizziness, Denies syncope, Denies frequent falls, Reports headache(s), Denies lack of coordination, Denies loss of vision, Denies memory loss, Denies numbness, Denies Other visual disturbances, Denies restless legs, Denies seizure-like activity, Denies tingling, Denies paresthesias, Denies tremor(s) and Denies weakness Psych Denies anxiety, Denies depression, Denies auditory hallucinations, Denies memory loss and Denies visual hallucinations Endo Denies fatigue and Denies palpitations Physical Exam Const Other: General Appearance:? normal, in no acute distress. Heart:? S1, S2 normal, no murmurs. Lungs:? clear anteriorly and posteriorly. Musculoskeletal:? normal. Extremities:? no edema. Psych:? alert, oriented, cognitive function intact, cooperative with exam. Neuro Other: Abnormal Neurological Findings:?L facial synkinesis. Mental Status: alert and oriented X 3. Normal attention, orientation, memory, and affect. Cranial Nerves: Pupils are equal, round, and reactive to light. External ocular muscles are intact. Visual shell are full, no ptosis. Face is symmetrical, no facial weakness or droop. Facial sensations are normal. Tongue protrudes in midl ine. Palate elevates symmetrically. Shoulder shrugging is normal Motor Examination: Normal muscle tone, bulk and strength. No atrophy or fasciculations. No drift of the extended upper extremities. DTR 2+. Plantars are flexor. Sensory Exam: Normal light touch, temperature, pinprick, vibration, and joint- position sensations. Rhomberg sign is absent. Coordination: No ataxia. No titubation. Gait Exam: Within normal limits. Cerebellar Signs: [id number] is okay. Extrapyramidal System: No tremor, rigidity with normal facial expressions. No bradykinesia. No bradyphrenia. Normal arm swing and posture. No propulsion or retropulsion. Speech: Normal. Results Reviewed Results Reviewed: 02/21/20: NCV/EMG : Early CTS on the right. Assessment & Plan Assessment & Plan (1) Migraine: Code(s): G43.909 - Migraine, unspecified, not intractable, without status migrainosus Category: Medical Qualifiers: Migraine type: unspecified Status migrainosus presence: without status migrainosus Intractability: not intractable Qualified Code(s): G43.909 - Migraine, unspecified, not intractable, without status migrainosus Plan: She was not taking morning dose of propranolol (30mg) as it made her too tired, continue propranolol 60mg 1 tablet at bedtime. Continue amitriptyline 10mg 1 tablet at bedtime. Continue sumatriptan 100mg 1 tablet as needed for migraine. Continue meclizine 25mg 1 tablet three times a day as needed for dizziness. Continue ibuprofen 400mg 1 tablet three times a day as needed for pain/headache. (2) Insomnia: Code(s): G47.00 - Insomnia, unspecified Category: Medical Qualifiers: Insomnia type: unspecified Qualified Code(s): G47.00 - Insomnia, unspecified Plan: Continue zolpidem 5mg 1 tablet at bedtime as needed for sleep. Medications: New sumatriptan succinate take 1 tab at onset of headache; if no relief, may repeat 1 tab after at least 2 hrs; max = 2 tabs/24 hrs PO 10 tabs 5RF 30 days Changed From propranolol 1 tab at bedtime; To propranolol 60 mg PO BEDTIME 90 tabs 1RF 90 days Coding Level of Care Code Est Pt Level 4 (11765) Diagnoses Migraine without status migrainosus, not intractable, unspecified migraine type G43.909 Migraine type: unspecified Status migrainosus presence: without status migrainosus Intractability: not intractable Insomnia, unspecified type G47.00 Insomnia type: unspecified
== END 2025-01-25 12:28 | disposition home or self-care (01) ==
LOC: HO.HSM 12:07
PROVIDERS: PCP Internal Medicine; Referring Provider Internal Medicine; Visit Provider Registered Nurse
DX: G43.909 Migraine, unspecified, not intractable, without status migrainosus (principal); G47.00 Insomnia, unspecified
CPT/HCPCS: 99214

== ENCOUNTER → 2025-01-25 12:06 | Outpatient (BNVA) | payer MEDICARE, MEDICAID, SELFPAY | PROVIDERS: PCP Internal Medicine; Referring Provider Internal Medicine; Visit Provider Registered Nurse | DX: G43.909 Migraine, unspecified, not intractable, without status migrainosus (principal); G47.00 Insomnia, unspecified; Z79.899 Other long term (current) drug therapy | CPT/HCPCS: 99212 ==